=== PATIENT | female | born 1930 | race Caucasian/White ===

== ENCOUNTER 2016-11-07 07:52 | Inpatient (IN) | payer OTHER ==
[~2016-11-07] VITALS: Ht 149.9 cm; Wt 72.6 kg
--- NOTE | 2016-11-07 09:09 | DIAGNOSTIC IMAGING REPORT ---
PROCEDURE: XR ABDOMEN 1 VIEW INDICATION: CONSTIPATION TECHNIQUE: AP supine view. COMPARISON: None. FINDINGS: Several moderately dilated loops of small bowel centrally with decreased gas distally. No masses or unusual calcifications. Right upper quadrant surgical clips. 4 cm ovoid opacity projecting over the sacrum. Degenerative changes of the spine. IMPRESSION: 1. Moderately dilated loops of small bowel with paucity of gas distally suspicious for small bowel obstruction. Ileus is less likely. 2. Cholecystectomy
--- NOTE | 2016-11-07 10:09 | DIAGNOSTIC IMAGING REPORT ---
PROCEDURE: CT ABDOMEN/PELVIS W/O CONTRAST INDICATION: CONSTIPATION TECHNIQUE: Noncontrast axial images were obtained of the entire abdomen and pelvis with sagittal and coronal reformations. COMPARISON: KUB 11/07/[address] abdomen/pelvis 12/27/2012 FINDINGS: ABDOMEN: Lung bases are clear. Normal heart size. Moderate dilation of the jejunum and mid ileum with air-fluid levels and normal caliber distally. Transition point in the mid pelvis. Mild residual stool. Cholecystectomy. Liver, pancreas, spleen, adrenal glands and kidneys are unremarkable. Severe atherosclerosis but no aneurysm. Moderate hiatal hernia. 3.5 cm midline fat-containing ventral hernia in the epigastric region. PELVIS: Normal appendix. Distal sigmoid suture line. Atrophic uterus. Normal adnexa and bladder. No free fluid or inflammatory changes. Osteopenia. New severe L2, L3 and L5 compression fractures which appear chronic, with L5 vertebroplasty. L2 and L3 retropulsion with severe spinal stenosis at. Grade 1 L4-5 anterolisthesis. IMPRESSION: 1. Distal sigmoid suture line with moderate dilation of the small bowel and transition point in the pelvis. Findings are consistent with small bowel obstruction, likely due to adhesions 2. Cholecystectomy 3. Moderate hiatal hernia 4. 3.5 cm midline fat-containing ventral hernia 5. Osteopenia with severe L2, L3 and L5 compression fractures which appear chronic (L5 vertebroplasty) 6. Results discussed with Dr. Scruggs All CT scans at this facility use dose modulation, iterative reconstruction, and/or weight-based dosing when appropriate to reduce radiation dose to as low as reasonably achievable.
--- NOTE | 2016-11-07 10:36 | ED ORDER SUMMARY ---
..... Patient: JACQUELYN ANDRADE OrderSheet [facility] VisitID: [id number] [place], [place] [id number] 86y, F Registration Date/Time: 11/07/2016 ORDER SHEET Weight: 64.8 kg (stated) Allergies: Ibuprofen GENERAL ORDERS: Abdomen 1V Urgent (08:31 11/07/2016 Devorah Walton) (Ack 8:35 LTapper) (8:59 LTapper) CBC w Diff Urgent (08:32 11/07/2016 Devorah Walton) (Ack 8:35 LTapper) (8:36 SReitz R.N.) CMP Urgent (08:11/07/2016 Devorah Walton) (Ack 8:35 LTapper) (8:36 SReitz R.N.) UA-Culture if indicated Urgent (08:32 11/07/2016 Devorah Walton) (Ack 8:35 LTapper) (10:48 RKaruga) Amylase Urgent (08:32 11/07/2016 Devorah Walton) (Ack 8:35 LTapper) (8:36 SReitz R.N.) Lipase Urgent (08:32 11/07/2016 Devorah Walton) (Ack 8:35 LTapper) (8:36 SReitz R.N.) Magnesium Urgent (08:32 11/07/2016 Devorah Walton) (Ack 8:35 LTapper) (8:36 SReitz R.N.) CT Abd/Pel wo Cont Urgent (08:57 11/07/2016 Devorah Walton) (Ack 8:58 LTapper) (9:33 LTapper) NG Tube (10:39 11/07/2016 Maxine TELLO) (Ack 10:49 SReitz R.N.) (11:21 SReitz R.N.) EKG - ER Stat (11:30 11/07/2016 SReitz R.N. verbal order read back to Devorah Walton) (11:57 LTapper) (11:58 RKarshaneka) Troponin-I Urgent (11:47 11/07/2016 Maxine TELLO) (Ack 12:00 LTapper) (12:50 Eliseo Castaneda.N.) CPK Urgent (11:47 11/07/2016 Maxine TELLO) (Ack 12:00 LTapper) (12:51 Eliseo Kothari) MEDICATION ORDERS: IV FLUIDS: IV NS : initial bolus none -, then 1000 mL/hr for X1 (NOW) (08:31 11/07/2016 Devorah Walton) (8:36 Eliseo Castaneda.N.) Zofran IV 4 mg (NOW) (10:43 11/07/2016 Maxine TELLO) (Ack 10:46 Eliseo R.N.) (10:48 Eliseo R.N.) ORDER SHEET NOTES: [Electronically signed by Maddie Rayo R.N. (12:52 11/07/2016)] [Electronically signed by Kg Scruggs MD (15:22 11/08/2016)] [Electronically locked/signed by Maddie Rayo R.N. (12:52 11/07/2016)]
--- NOTE | 2016-11-07 10:36 | ED CLINICAL REPORT ---
Clinical Report - Physicians/Mid Levels [facility] [address] [place] [address] 11/07/2016 7:52 Patient: JACQUELYN ANDRADE Time Seen; initial patient contact. Arrived- By private vehicle. Historian- patient. CPT: ER phys charges level 5 (#[id number]). HISTORY OF PRESENT ILLNESS Chief Complaint: ABDOMINAL PAIN. At its maximum, severity described as moderate. When seen in the E.D., severity described as mild. Modifying factors. Not worsened by anything. Not relieved by anything. This started about 3 days ago; Has not taken po well for the past week. and is still present. It was gradual in onset. It is described as cramping. No radiation. It is described as generalized in location. The patient has had nausea, loss of appetite and vomiting. No diarrhea. No recent travel. Similar symptoms previously: None. Recent medical care: Not recently seen/assessed. REVIEW OF SYSTEMS The patient has had constipation and weakness. No black stools, hematemesis, difficulty with urination, pain with urination or fever. No sore throat or throat, blurred vision, chest pain or difficulty breathing. No cough, joint pain, skin rash, chills or back pain. No diabetic symptoms or easy bruising. Last bowel movement: 3 days ago. All systems otherwise negative, except as recorded above. PAST HISTORY Coronary Artery Disease. Hypertension. Epistaxis. Cancer. Cholelithiasis. Gallstone(s). Gastroesophageal Reflux Disease. Hypercholesterolemia. Osteoporosis. ADDITIONAL SURGERIES: Cataract Surgery. Colon cancer surgery. Hammer toe. Knee Surgery. Shoulder Surgery. Back Surgery. SOCIAL HISTORY Smoker - current status unknown. No alcohol use or drug use. ADDITIONAL NOTES The nursing notes have been reviewed with agreement regarding the chief complaint, PMH and patient medications and allergies. PHYSICAL EXAM Vital Signs: 11/07/2016 08:02 BP: 112/72. HR: 112. RR: 16. O2 saturation: 96%. Temp: 98.6 F. Have been reviewed. Blood pressure normal. Tachycardic. Respiratory rate normal. Temperature normal. Oxygen saturation normal. Appearance: Alert. Oriented X3. No acute distress. Eyes: Eyes normal inspection. ENT: Dry mucous membranes present. Neck: Neck supple. CVS: Tachycardia. Heart sounds normal. Rhythm normal. Respiratory: No respiratory distress. Breath sounds normal. Abdomen: Soft. Mild tenderness diffusely. No guarding, rebound tenderness or Young's sign present. Abnormal bowel sounds: diminished and high pitched. No organomegaly. No mass. Skin: Poor skin turgor. Skin warm and dry. Normal skin color. Extremities: No lower extremity edema. Neuro: Oriented X 3. LABS, X-RAYS, AND EKG EKG: Rate: 104. Atrial fibrillation. Normal QRS complex. Non-specific ST segment / T wave abnormalities. Prior EKG unavailable. The study has been interpreted contemporaneously. The study has been independently viewed by me. The EKG appears to be a good tracing. KUB: Diffuse abnormal gas pattern with small bowel dilatation and air fluid levels. Findings consistent with an obstruction. Views: AP. Technique: good. The X-rays were independently viewed by me and interpreted contemporaneously by me. Prior films were not available for comparison. Interpretation time: 09:34. Abdominal CT: Multiple loops of small bowel, mid-abdomen transition point.. Laboratory Tests: CBC w Diff: (AFSHIN: 11/07/2016 08:10) ( MsgRcvd 11/07/2016 08:40) Final results Test Result Flag Units (Reference) WHITE BLOOD COUNT 13.4 H K/uL (4.5-11.5) RED BLOOD COUNT 4.57 M/uL (4.00-5.20) HEMOGLOBIN 14.6 gm/dL (12.0-16.0) HEMATOCRIT 42.8 % (36.0-46.0) MEAN CELL VOLUME 94 fL (80-100) MEAN CORPUSCULAR HGB 32 pg (26-34) MEAN CORPUSCULAR HGB CONC 34 g/dL (31-37) RED CELL DISTRIBUTION WIDTH 12.3 % (11.6-14.8) PLATELET COUNT 364 K/uL (150-400) NEUTROPHIL % 82.5 H % (50-75) LYMPH % 8.2 L % (25-40) MONO % 8.9 % (3-14) EOSINOPHIL % 0 % (0-4) BASOPHIL % 0.4 % (0-2) CMP: (AFSHIN: 11/07/2016 08:10) ( MsgRcvd 11/07/2016 08:52) Final results Test Result Flag Units (Reference) GLUCOSE 135 H mg/dL (70-110) BUN 61 H mg/dL (7-18) CREATININE 2.0 H mg/dL (0.6-1.3) Estimated GFR 25.11 mL/min Estimated GFR- 30.43 mL/min Note: Persistent reduction over 3 months in eGFR<60 mL/min/1.73 m2 defines CKD. Patients with eGFR values>=60 mL/min/1.73 m2 may also have CKD if evidence ofpersistent proteinuria. Additional information may be foundat www.kidney.org. SODIUM 132 L mmol/L (136-145) POTASSIUM 3.9 mmol/L (3.5-5.1) CHLORIDE 93 L mmol/L (98-107) CARBON DIOXIDE 24 mmol/L (21-32) CALCIUM 9.1 mg/dL (8.5-10.1) TOTAL PROTEIN 8.6 H g/dL (6.4-8.2) ALBUMIN 4.3 g/dL (3.3-5.0) BILIRUBIN, TOTAL 1.3 H mg/dL (0.0-1.0) ALKALINE PHOSPHATASE 80 U/L (46-116) AST (SGOT) 42 H U/L (15-37) ALT (SGPT) 38 U/L (12-78) MAGNESIUM 2.2 mg/dL (1.8-2.4) LIPASE 145 U/L (73-393) AMYLASE 60 U/L (25-115) . PROGRESS AND PROCEDURES Course of Care: IV NS 1 L IV 09:35 11/07/16. Awaiting CT of Abd/Pel. X ray and history c/w SBO. Case signed out to Dr. Scruggs. 11:46 11/07/16. RN note irregular rhythm on monitor : EKG done and shows a-fib. Pt has no hx of a-fib. Discussed case with on-call health care provider, (Rj.). Reviewed test results. Agreed upon treatment plan and decision to admit. Patient/family counseled. Old medical records ordered. Disposition orders written. Disposition: Admitted to Acute Care. CLINICAL IMPRESSION Partial small bowel obstruction associated with intestinal bands / adhesions. (Electronically signed by Kg Scruggs MD 11/08/2016 15:22)
--- NOTE | 2016-11-07 10:36 | ED NURSING NOTES ---
Clinical Report - Nurses [facility] [address] [place] [address] 11/07/2016 7:52 [id number] Triage time 08:02. Acuity: LEVEL 3. Chief Complaint: ABDOMINAL PAIN and VOMITING. Alert. No acute distress. SEPSIS SCREEN: Sepsis Screen. Negative (no infection suspected/documented). KIRSTY COMA SCORE: Kirsty Coma Scale: 15- eyes open spontaneously (4); best verbal response- oriented x 4 (5); best motor response- obeys commands (6). --08:09 Maddie Rayo R.N. 08:02 11/07/16. BP: 112/72. HR: 112. RR: 16. O2 saturation: 96%. Temp: 98.6 F. Pain level now 11/06. --08:09 Maddie Rayo R.N. Weight: 64.8 kg stated. Height/Length: 59 inches Per Patient. BMI: 28.9. --08:03 Maddie Rayo R.N. Medications Centrum Silver Oral. Lovastatin Oral (pt unsure of dose ). Omeprazole Oral 20 mg, 2x a day. Vitamin D Oral. Vitamin E Complex Oral. --08:06 Maddie Rayo R.N. ASA Oral daily. --08:06 Maddie Rayo R.N. TraZODone HCl Oral 100 mg, at bedtime. --08:07 Maddie Rayo R.N. family is bring updated med list*. --08:07 Maddie Rayo R.N. Nitroglycerin Sublingual, as needed (angina). --08:08 Maddie Rayo R.N. Allergies Ibuprofen. --08:06 Maddie Rayo R.N. History Arrived by private vehicle. Historian: patient. Accompanied by family. Primary physician (Dr. Marie). Onset. (3 days ago). ( Pt. does not recall last last BM: has been vomiting fecal smelling emesis.). Treatment EMPLOYEE RELATIONS ASSISTANT: None. PAST MEDICAL HX: Immunizations: up-to-date. SOCIAL HX: Smoker- current status unknown. Occasional alcohol use. No drug use. No recent travel. No known contact with a sick individual. ABUSE ASSESSMENT: Abuse assessment: The patient was asked "Do you feel safe in your home?" and "Has anyone hurt you or threatened to hurt you?". No report of abuse. SELF HARM ASSESSMENT: A self harm assessment was performed. NUTRITIONAL RISK ASSESSMENT: The nutritional risk assessment revealed no deficiencies. FUNCTIONAL ASSESSMENT: Functional assessment: no impairments noted. LEARNING NEEDS ASSESSMENT: The learning needs assessment revealed no barriers. --08:09 Maddie Rayo R.N. PROBLEMS: Coronary Artery Disease. Hypertension. Epistaxis. Cancer. Cholelithiasis. Gallstone(s). Gastroesophageal Reflux Disease. Hypercholesterolemia. --08:08 Maddie Rayo R.N. Osteoporosis. --08:11 Maddie Rayo R.N. ADDITIONAL SURGERIES: Cataract Surgery. Colon cancer surgery. Hammer toe. Knee Surgery. Shoulder Surgery. --08:08 Maddie Rayo R.N. Back Surgery. --08:11 Maddie Rayo R.N. Interventions ID band on patient. Transported via wheelchair. --08:09 Maddie Rayo R.N. PHYSICAL ASSESSMENT To room via wheelchair. GENERAL / NEURO / PSYCH: Alert. Appears in no acute distress. HEENT: Mucous membranes are pink. RESPIRATORY: Respirations not labored. CVS: Capillary refill less than 2 seconds. GI / : Abdomen soft and nontender. SKIN: Skin is warm and dry. --08:10 Maddie Rayo R.N. NURSING PROGRESS NOTES Patient gowned. Head of bed elevated. Two patient identifiers checked. Call light placed in reach. Side rails up x 2. Bed placed in lowest position. Brakes of bed on. Patient ready for evaluation- chart flagged. --08:10 Maddie Rayo R.N. 08:10 11/07/2016 Site #1 started via IV in the left antecubital space with an 20g angiocath, with aseptic technique and good blood return; one attempt. Blood drawn: rainbow set. Labeled in the presence of the patient and sent to the lab. Saline lock flushed with 10 mL saline (accessed by CONRAD Rodriguez). --08:10 Maddie Rayo R.N. night monitor, pulse oximeter and NIBP monitor placed on patient; surveillance system monitor- Lead II; monitor alarms on. --08:10 Maddie Rayo R.N. 08:36 11/07/2016 Started bag #1 1000 mL IV Fluids IV NS (Saline); at 1000 mL/hr over 1 hour(s) via site #1 via IV pump. Allergies verified and confirmed 5 rights. IV patency established. IV site checked: no pain, redness, or swelling. IV flushed thoroughly pre- and post-medication administration. --08:36 Maddie Rayo R.N. 09:20 11/07/16. BP: 129/60. HR: 94. RR: 23. O2 saturation: 96%. --09:21 Maddie Rayo R.N. Patient transported to [place] by stretcher with tech. --09:21 Maddie Rayo R.N. 10:48 11/07/2016 Zofran (Ondansetron HCl) IVP 4 mg given over 1 minute(s) via site #1. Allergies verified and confirmed 5 rights. IV patency established. IV site checked: no pain, redness, or swelling. IV flushed thoroughly pre- and post-medication administration. --10:48 Maddie Rayo R.N. 10:40. Patient ID band checked for patient name and birthdate: patient confirmed urine collected with return of ban-colored cloudy urine; odor is normal; sample sent to lab for urinalysis. Specimen labeled in the presence of the patient. --10:49 Adamaris Vargas 11:15. 16 fr NG tube inserted in right nostril with no difficulty. Placement confirmed by return of gastric contents. Return: brown fluid, fecal odor. Tube secured. Attached to low suction. Patient tolerated procedure well. --11:25 Maddie Rayo R.N. 11:26 11/07/16. BP: 118/74. HR: 99. RR: 24. O2 saturation: 97%. --11:27 Maddie Rayo R.N. EKG time: (11:40). EKG was performed by a tech and shown to the ED physician. --12:02 Adamaris Vargas ( attempt to call report: STEPHEN RN to call back.). --12:06 Maddie Rayo R.N. 09:45 11/07/2016 IV Fluids IV NS Discontinued: bag #1 infused. Total amount infused: 1000 mL. IV patency established. IV site checked: no pain, redness, or swelling. IV flushed thoroughly. --12:52 Maddie Rayo R.N. 11:30 11/07/2016 Zofran IVP Response: no adverse reaction pain is improving. Symptoms have improved. --12:51 Maddie Rayo R.N. Intake & Output 10:45. Emesis output: 50 mL; return noted as brown. --11:23 Adamaris Vargas IV fluids: 1000 mL. Emesis output: 400 mL; return noted as brown. --12:43 Maddie Rayo R.N. DISPOSITION / DISCHARGE 12:43 11/07/16. BP: 125/52. HR: 86 (irregularly-irregular). RR: 28. O2 saturation: 97%. Temp: 99.5 F. Pain level now: 10/09. --12:44 Maddie Rayo R.N. 12:44 11/07/2016 Site #[address] upon admission; patent, no pain and no signs of infiltration. Flushed with 10 mL saline; flushes easily. --12:44 Maddie Rayo R.N. Admitted to Acute Care. Report was given to a nurse via a phone call. Report included patient's care, treatment, medications, reviewed medication reconcilliation, and condition (including any recent changes or anticipated changes). All questions were answered. Patient's personal items; items were placed in belongings bag, given to the patient and transported with the patient. --12:45 Maddie Rayo R.N. Departure time: 12:50. --12:50 Maddie Rayo R.N. Locked/Released at 11/07/2016 12:52 by Maddie Rayo R.N.
--- NOTE | 2016-11-07 10:36 | ED ORDER SUMMARY ---
..... Patient: JACQUELYN ANDRADE OrderSheet [facility] VisitID: [id number] [place], [place] [id number] 86y, F Registration Date/Time: 11/07/2016 ORDER SHEET Weight: 64.8 kg (stated) Allergies: Ibuprofen GENERAL ORDERS: Abdomen 1V Urgent (08:31 11/07/2016 Devorah Walton) (Ack 8:35 LTapper) (8:59 LTapper) CBC w Diff Urgent (08:32 11/07/2016 Devorah Walton) (Ack 8:35 LTapper) (8:36 SReitz R.N.) CMP Urgent (08:11/07/2016 Devorah Walton) (Ack 8:35 LTapper) (8:36 SReitz R.N.) UA-Culture if indicated Urgent (08:32 11/07/2016 Devorah Walton) (Ack 8:35 LTapper) (10:48 RKaruga) Amylase Urgent (08:32 11/07/2016 Devorah Walton) (Ack 8:35 LTapper) (8:36 SReitz R.N.) Lipase Urgent (08:32 11/07/2016 Devorah Walton) (Ack 8:35 LTapper) (8:36 SReitz R.N.) Magnesium Urgent (08:32 11/07/2016 Devorah Walton) (Ack 8:35 LTapper) (8:36 SReitz R.N.) CT Abd/Pel wo Cont Urgent (08:57 11/07/2016 Devorah Walton) (Ack 8:58 LTapper) (9:33 LTapper) NG Tube (10:39 11/07/2016 Maxine TELLO) (Ack 10:49 SReitz R.N.) (11:21 SReitz R.N.) EKG - ER Stat (11:30 11/07/2016 SReitz R.N. verbal order read back to Devorah Walton) (11:57 LTapper) (11:58 RKarshaneka) Troponin-I Urgent (11:47 11/07/2016 Maxine TELLO) (Ack 12:00 LTapper) (12:50 Eliseo Castaneda.N.) CPK Urgent (11:47 11/07/2016 Maxine TELLO) (Ack 12:00 LTapper) (12:51 Eliseo Kothari) MEDICATION ORDERS: IV FLUIDS: IV NS : initial bolus none -, then 1000 mL/hr for X1 (NOW) (08:31 11/07/2016 Devorah Walton) (8:36 Eliseo Castaneda.N.) Zofran IV 4 mg (NOW) (10:43 11/07/2016 Maxine TELLO) (Ack 10:46 Eliseo R.N.) (10:48 Eliseo R.N.) ORDER SHEET NOTES: [Electronically signed by Maddie Rayo R.N. (12:52 11/07/2016)] [Electronically signed by Kg Scruggs MD (15:22 11/08/2016)] [Electronically locked/signed by Maddie Rayo R.N. (12:52 11/07/2016)]
--- NOTE | 2016-11-07 10:36 | ED NURSING NOTES ---
Clinical Report - Nurses [facility] [address] [place] [address] 11/07/2016 7:52 [facility]: [id number] TRIAGE Triage time 08:02. Acuity: LEVEL 3. Chief Complaint: ABDOMINAL PAIN and VOMITING. Alert. No acute distress. SEPSIS SCREEN: Sepsis Screen. Negative (no infection suspected/documented). KIRSTY COMA SCORE: Kirsty Coma Scale: 15- eyes open spontaneously (4); best verbal response- oriented x 4 (5); best motor response- obeys commands (6). --08:09 Maddie Rayo R.N. 08:02 11/07/16. BP: 112/72. HR: 112. RR: 16. O2 saturation: 96%. Temp: 98.6 F. Pain level now 11/06. --08:09 Maddie Rayo R.N. Weight: 64.8 kg stated. Height/Length: 59 inches Per Patient. BMI: 28.9. --08:03 Maddie Rayo R.N. Medications Centrum Silver Oral. Lovastatin Oral (pt unsure of dose ). Omeprazole Oral 20 mg, 2x a day. Vitamin D Oral. Vitamin E Complex Oral. --08:06 Maddie Rayo R.N. ASA Oral daily. --08:06 Maddie Rayo R.N. TraZODone HCl Oral 100 mg, at bedtime. --08:07 Maddie Rayo R.N. family is bring updated med list*. --08:07 Maddie Rayo R.N. Nitroglycerin Sublingual, as needed (angina). --08:08 Maddie Rayo R.N. Allergies Ibuprofen. --08:06 Maddie Rayo R.N. History Arrived by private vehicle. Historian: patient. Accompanied by family. Primary physician (Dr. Marie). Onset. (3 days ago). ( Pt. does not recall last last BM: has been vomiting fecal smelling emesis.). Treatment CARD PLAYER: None. PAST MEDICAL HX: Immunizations: up-to-date. SOCIAL HX: Smoker- current status unknown. Occasional alcohol use. No drug use. No recent travel. No known contact with a sick individual. ABUSE ASSESSMENT: Abuse assessment: The patient was asked "Do you feel safe in your home?" and "Has anyone hurt you or threatened to hurt you?". No report of abuse. SELF HARM ASSESSMENT: A self harm assessment was performed. NUTRITIONAL RISK ASSESSMENT: The nutritional risk assessment revealed no deficiencies. FUNCTIONAL ASSESSMENT: Functional assessment: no impairments noted. LEARNING NEEDS ASSESSMENT: The learning needs assessment revealed no barriers. --08:09 Maddie Rayo R.N. PROBLEMS: Coronary Artery Disease. Hypertension. Epistaxis. Cancer. Cholelithiasis. Gallstone(s). Gastroesophageal Reflux Disease. Hypercholesterolemia. --08:08 Maddie Rayo R.N. Osteoporosis. --08:11 Maddie Rayo R.N. ADDITIONAL SURGERIES: Cataract Surgery. Colon cancer surgery. Hammer toe. Knee Surgery. Shoulder Surgery. --08:08 Maddie Rayo R.N. Back Surgery. --08:11 Maddie Rayo R.N. Interventions ID band on patient. Transported via wheelchair. --08:09 Maddie Rayo R.N. PHYSICAL ASSESSMENT To room via wheelchair. GENERAL / NEURO / PSYCH: Alert. Appears in no acute distress. HEENT: Mucous membranes are pink. RESPIRATORY: Respirations not labored. CVS: Capillary refill less than 2 seconds. GI / : Abdomen soft and nontender. SKIN: Skin is warm and dry. --08:10 Maddie Rayo R.N. NURSING PROGRESS NOTES Patient gowned. Head of bed elevated. Two patient identifiers checked. Call light placed in reach. Side rails up x 2. Bed placed in lowest position. Brakes of bed on. Patient ready for evaluation- chart flagged. --08:10 Maddie Rayo R.N. 08:10 11/07/2016 Site #1 started via IV in the left antecubital space with an 20g angiocath, with aseptic technique and good blood return; one attempt. Blood drawn: rainbow set. Labeled in the presence of the patient and sent to the lab. Saline lock flushed with 10 mL saline (accessed by CONRAD Rodriguez). --08:10 Maddie Rayo R.N. vehicle monitor technician, pulse oximeter and NIBP monitor placed on patient; cardiac cath technologist- Lead II; monitor alarms on. --08:10 Maddie Rayo R.N. 08:36 11/07/2016 Started bag #1 1000 mL IV Fluids IV NS (Saline); at 1000 mL/hr over 1 hour(s) via site #1 via IV pump. Allergies verified and confirmed 5 rights. IV patency established. IV site checked: no pain, redness, or swelling. IV flushed thoroughly pre- and post-medication administration. --08:36 Maddie Rayo R.N. 09:20 11/07/16. BP: 129/60. HR: 94. RR: 23. O2 saturation: 96%. --09:21 Maddie Rayo R.N. Patient transported to [place] by stretcher with tech. --09:21 Maddie Rayo R.N. 10:48 11/07/2016 Zofran (Ondansetron HCl) IVP 4 mg given over 1 minute(s) via site #1. Allergies verified and confirmed 5 rights. IV patency established. IV site checked: no pain, redness, or swelling. IV flushed thoroughly pre- and post-medication administration. --10:48 Maddie Rayo R.N. 10:40. Patient ID band checked for patient name and birthdate: patient confirmed urine collected with return of ban-colored cloudy urine; odor is normal; sample sent to lab for urinalysis. Specimen labeled in the presence of the patient. --10:49 Adamaris Vargas 11:15. 16 fr NG tube inserted in right nostril with no difficulty. Placement confirmed by return of gastric contents. Return: brown fluid, fecal odor. Tube secured. Attached to low suction. Patient tolerated procedure well. --11:25 Maddie Rayo R.N. 11:26 11/07/16. BP: 118/74. HR: 99. RR: 24. O2 saturation: 97%. --11:27 Maddie Rayo R.N. EKG time: (11:40). EKG was performed by a tech and shown to the ED physician. --12:02 Adamaris Vargas ( attempt to call report: STEPHEN RN to call back.). --12:06 Maddie Rayo R.N. 09:45 11/07/2016 IV Fluids IV NS Discontinued: bag #1 infused. Total amount infused: 1000 mL. IV patency established. IV site checked: no pain, redness, or swelling. IV flushed thoroughly. --12:52 Maddie Rayo R.N. 11:30 11/07/2016 Zofran IVP Response: no adverse reaction pain is improving. Symptoms have improved. --12:51 Maddie Rayo R.N. Intake & Output 10:45. Emesis output: 50 mL; return noted as brown. --11:23 Adamaris Vargas IV fluids: 1000 mL. Emesis output: 400 mL; return noted as brown. --12:43 Maddie Rayo R.N. DISPOSITION / DISCHARGE 12:43 11/07/16. BP: 125/52. HR: 86 (irregularly-irregular). RR: 28. O2 saturation: 97%. Temp: 99.5 F. Pain level now: 10/09. --12:44 Maddie Rayo R.N. 12:44 11/07/2016 Site #[address] upon admission; patent, no pain and no signs of infiltration. Flushed with 10 mL saline; flushes easily. --12:44 Maddie Rayo R.N. Admitted to Acute Care. Report was given to a nurse via a phone call. Report included patient's care, treatment, medications, reviewed medication reconcilliation, and condition (including any recent changes or anticipated changes). All questions were answered. Patient's personal items; items were placed in belongings bag, given to the patient and transported with the patient. --12:45 Maddie Rayo R.N. Departure time: 12:50. --12:50 Maddie Rayo R.N. Locked/Released at 11/07/2016 12:52 by Maddie Rayo R.N.
[2016-11-07 13:20] VITALS: BP 121/64
--- NOTE | 2016-11-07 14:24 | CONSULTATION REPORT ---
DATE OF CONSULTATION: 11/07/2016 REFERRING PHYSICIAN: Shadia Gaona MD CHIEF COMPLAINT: Vomiting. HISTORY OF PRESENT ILLNESS: The patient is an 86-year-old woman who presented to the hospital with a 4-day history of vomiting. She did not have abdominal pain until this morning in the epigastrium and this has since settled down with placement of a nasogastric tube. At the present time, she does not have any pain and feels quite comfortable. She denied any hematemesis. She is not currently passing gas. In the emergency room notes, she has had similar milder symptoms several times in the past. I am familiar with this patient from previous surgeries including colon cancer surgery and cholecystectomy. MEDICATIONS: 1. Lovastatin, dose unknown. 2. Omeprazole 20 mg b.i.d. 3. Aspirin once a day. 4. Trazodone 100 mg at bedtime. 5. Nitroglycerin sublingual as needed. 6. Multiple nutritional supplements. ALLERGIES: Ibuprofen and nsaids MEDICAL/SURGICAL HISTORY: Medical history includes GERD, and elevated cholesterol. Past surgery: Cataract surgery, hammertoe correction, knee surgery, shoulder surgery, laparoscopic low anterior resection in 2003. She had a colonoscopy in 2008, laparoscopic cholecystectomy and common bile duct exploration in 2012. SOCIAL HISTORY: The patient is . She has 3 sons and 2 daughters. She does not take alcohol. She does not smoke cigarettes. She is independent. FAMILY HISTORY: Father of heart disease at age 70. Mother had Alzheimer's complications. One brother and 1 sister had heart disease. She has a daughter with ulcerative colitis and fibromyalgia. REVIEW OF SYSTEMS: A multipoint review of systems was obtained. The patient is G5, P5, AB 0. Menarche at age 14. At least all systems were covered and she reports no other additional symptoms other than the vomiting problem that she has had and the transient epigastric pain. She reports her last bowel movement was about 3 days ago. She has not had fever and chills, but she does report a previous history of constipation. She has no urinary problems, pulmonary, cardiac problems. There was a mention of previous coronary artery disease and documentation in the past of atrial fibrillation, though the patient is not reported to be in atrial fibrillation at this time and is not anticoagulated. PHYSICAL EXAMINATION: VITAL SIGNS: This morning, blood pressure 112/72, heart rate 112, respirations 16, O2 saturation 96%, and temperature 98.6. GENERAL: The patient appears to be comfortable. She has a nasogastric tube in place with nonbilious output. HEENT: Her ears and nose demonstrate no gross external lesions. Eyes are equal. She is anicteric. NECK: Without palpable masses or thyromegaly. I did not hear bruits. CHEST: Clear to auscultation. HEART: Regular, I did not hear a murmur. ABDOMEN: Nontender to palpation. Bowel sounds are hypoactive. There is no active clear distention or increased tympany. EXTREMITIES: Symmetric. She appeared to move without much restriction. LAB/IMAGING: Initial white count was 13.4, hemoglobin and hematocrit 14.6 and 42.8. Chemistry showed sodium 132, potassium 3.9, BUN and creatinine of 61 and 2.0, bilirubin of 1.3. Urinalysis was 1-3 white cells, no red cells. CT scan was reviewed. This demonstrates evidence of a small-bowel obstruction with dilated small bowel with a likely transition point in the distal jejunum or ileum. Additional findings were a staple line in the lower colon, which appears to be widely patent. There is a fair amount of stool in the rectum and colon. She has some chronic lumbar spine problems and some calcified vessels. IMPRESSION: 1. Small-bowel obstruction without signs of bowel compromise. PLAN: I recommended the patient be treated with nasogastric decompression. If she continues to do well, then a Gastrografin study may be in line for her in the next few days. I will sign the patient out Dr. Benavidez starting tomorrow.
[2016-11-07 15:17] VITALS: BP 147/86
--- NOTE | 2016-11-07 15:19 | NUR ---
DISCUSSED WITH PT AND FAMILY THE CONTENTS OF THE VISITOR HANDBOOK, INCLUDING HOSPITALIST AVAILIBILTIY, VISTING HOURS, NOISE REDUCTION PROCESSES AND QUIET KITS, PT COMFORT AND PAIN CONTROL, INCLUDING PAIN CONTROL ADJUNCTIVES, THE FUNCTION OF WHITEBOARDS AND IMPORTANCE OF KEEPING THEM UPDATED WELL BED SIDE REPORT AND ENCOURAGED PT AND FAMILY TO PARTICIPATE. ALL QUESTIONS ANSWERED, PT AND FAMILY DEMONSTRATED UNDERSTANDING.
--- NOTE | 2016-11-07 15:44 | NUR ---
PATIENT ADMITTED TO FLOOR AT 1400. NG TUBE CAME OUT OF NOSE AFTER ADMITTED. NG REPLACED AND TOOK SEVERAL TRIED TO INSERT DUE TO PATIENT NOT ABLE TO TOLERATE INSERTION. PATIENT GAGGING AND HAVING TROUBLES TOLERATING. NG CURRENTLY IN PLACE TO LIS. BROWN LIQUID BEING SUCTIONED FROM NG. BT'S + X 4. ABDOMEN SOFTLY DISTENDED. PATIENT WEARING BRIEFS AND STATES SHE HAS OCCASSIONAL STRESS INCONTINENCE. STATES SHE IS CONTINENT OF BM. STATES SHE USES A FWW AT BASELINE. LIVES IN HER OWN HOME THAT IS VERY CLOSE TO HER FAMILY AND HER FAMILY PROVIDES ALL HER MEALS. FAMILY CURRENTLY AT BEDSIDE AND SON BROUGHT IN MED LIST. SEE ADMISSION PAPERWORK FOR DETAILS.
[2016-11-07] MEDS ORDERED: EVISTA60 MG (16:38)
[2016-11-07] MEDS ORDERED: METOPROLOL ER PO (16:38)
[2016-11-07] MEDS ORDERED: COZAAR25 MG PO (16:38)
[2016-11-07] MEDS ORDERED: OMEPRAZOLE PO (16:39)
[2016-11-07] MEDS ORDERED: ALLOPURINOL100 M1 (16:39)
[2016-11-07] MEDS ORDERED: MELOXICAM15 MG PO (16:40)
[2016-11-07] MEDS ORDERED: TUMS500 MG (16:40)
[2016-11-07] MEDS ORDERED: TRAZODONE HCL100 MG PO (16:40)
[2016-11-07] MEDS ORDERED: MELOXICAM15 MG (16:40)
[2016-11-07] MEDS ORDERED: VICODIN EQUIVAL1 TAB PO (16:41)
--- NOTE | 2016-11-07 17:47 | NUR ---
END SHIFT REPORT: ADMINISTERED FLEET'S ENEMA AT BEDSIDE. PT TOLERATED WELL, HELD IN FOR A FEW MINUTES. SOME STOOL OUTPUT. ASSISTED PT BACK TO BED, NG TUBE TO LIWS, ABOUT 400MLS OF OUTPUT. IVF INFUSING, PT REMAINS NPO, DR IZAGUIRRE TO SEE PT AT BEDSIDE. CALL PLACED TO SON TO DETERMINE ACCURATE LIST OF HOME MEDS. PT NOW RESTING IN BED, STABLE, RESTING COMFORTABLY, WCTM.
[2016-11-07 18:56] VITALS: BP 143/69
--- NOTE | 2016-11-07 20:22 | NUR ---
Pt. is resting in bed at this time. Alert, oriented and cooperative with all care. Pt. understands plan of care, is NPO for bowel rest, has NG at [facility] which is suctioning brown drainage. Abdomen is softly distended, pt. states she feels much better after having BM after enema tonight. Bowel tones present but hypoactive. Telemtry shows a-fib with HR in 90's. Benadryl given for sleep at pt.'s request. Call light within reach. Pt. encouraged to turn often in bed, pt. agrees and understands. wctm.
[2016-11-07 23:44] VITALS: BP 138/55
--- NOTE | 2016-11-08 00:13 | HISTORY AND PHYSICAL ---
ADMITTED: 11/07/2016 CHIEF COMPLAINT: 1. Nausea and vomiting 2. No BM x4 days HISTORY OF PRESENT ILLNESS: This is an 86-year-old female with a history of colectomy secondary to stage I colon cancer presenting to the emergency department with complaints of vomiting x4 days multiple times a day, and with her last bowel movement being greater than 4 days ago. She states that she is vomiting brown liquid from her stomach. She denies any abdominal pain. No hematochezia, melena, or hemoptysis. MEDICAL/SURGICAL HISTORY: Past medical history: 1. Colon cancer, not treated with chemotherapy. 2. Hypertension. 3. Dyslipidemia. 4. Osteoporosis. 5. Mitral regurgitation. 6. GERD. 7. Insomnia. 8. Moderate hiatal hernia. 9. The patient had a cardiac echocardiogram in 07/2014 that showed ejection fraction of 60%. Past surgical history: 1. Partial colectomy. 2. Cholecystectomy. 3. Bilateral arthroplasties twice. 4. Bilateral cataract surgery. MEDICATIONS: According to the patient's list, she is on: 1. Metoprolol ER 50 mg p.o. daily. 1. Raloxifene 60 mg p.o. daily. 2. Losartan 25 mg p.o. daily. 3. Allopurinol 100 mg p.o. daily. 4. Omeprazole 20 mg p.o. b.i.d. 5. Trazodone 100 mg p.o. at bedtime. 6. Meloxicam 15 mg p.o. daily. 7. Tums. 8. Vicodin 5/325 mg 1 tablet p.o. at bedtime. 9. However, according to the clinic, in addition to those medications, the patient is also taking lovastatin 20 mg p.o. daily. 10. Chlorthalidone 12.5 mg p.o. daily. 11. Spironolactone 25 mg p.o. daily. 12. Singulair 10 mg p.o. daily. 13. Gabapentin 100 mg p.o. t.i.d. p.r.n. nerve pain. 14. Albuterol inhaler 2 puffs inhaled q.4 hours p.r.n. wheezing. 15. QVAR 80 mcg 1 spray each nostril daily. 16. Tizanidine 2 mg p.o. t.i.d. p.r.n. muscle spasms. ALLERGIES: 1. NO KNOWN DRUG ALLERGIES. SOCIAL HISTORY: The patient lives alone; however, her son and daughter live right next door. She denies any pets. She quit smoking in 1999, but had smoked for 47 years at a rate of half a pack per day. She does drink 1-2 glasses of wine every night, but she denies any drug use. FAMILY HISTORY: Mother with leukemia. Sister with a heart attack at age 68. Brother with a heart attack. Father with a heart attack at 72. REVIEW OF SYSTEMS: A full 12-point review of systems was done. It was negative except as per HPI. PHYSICAL EXAMINATION: VITAL SIGNS: Blood pressure is 121/64, pulse is 87, respiratory rate is 18, O2 saturation 96% on room air, T-max is 36.8 degrees Celsius. GENERAL: This is a healthy-appearing female lying in bed in no apparent distress. HEENT: Head is atraumatic, normocephalic. Pupils are equal, round, and reactive to light with accommodation bilaterally. Extraocular muscles are intact bilaterally. Tympanic membranes are nonerythematous without exudates. Oropharynx is nonerythematous but mildly tacky or dry. NECK: Trachea is midline. There is no JVD. HEART: S1, S2, regular rate and rhythm. No S3, S4, gallops or rubs. There is a 2 /6 systolic murmur increased at the base. LUNGS: Clear to auscultation bilaterally. ABDOMEN: Soft, nontender, nondistended without hepatosplenomegaly or masses. Bowel sounds are active. EXTREMITIES: There is no peripheral edema. LAB/IMAGING: Sodium is 132, chloride 93, potassium 3.9, bicarbonate 24, BUN of 61, creatinine of 2, glucose of 135. Total bilirubin is 1.3, alkaline phosphatase of 80, AST of 42, ALT of 38, lipase of 145, amylase of 60. White blood cell count of 13.4, hemoglobin of 14.6, hematocrit of 42.8, platelets of 364. UA is negative. Abdominal x-ray shows dilated small bowel. CT scan of the abdomen shows dilated small bowel. EKG shows atrial fibrillation at 104 beats per minute with a QTc of 462 and Q waves in III and aVF. IMPRESSION: 1. This is an 86-year-old female with a history of colon cancer resulting in partial colectomy presenting to the emergency department with complaints of 4 days of nausea and vomiting and no bowel movement in more than 4 days, likely secondary to a small-bowel obstruction. PLAN: 1. Fluids, electrolytes, nutrition: The patient will be kept nothing by mouth and started on intravenous fluids. If she remains on intravenous fluids for longer than 48 hours, we will consider total parenteral nutrition. 2. Cardiac: Hypertension. Continue current medications. The patient will be put on intravenous metoprolol p.r.n.; however, since she is nothing by mouth, will not be able to continue her antihypertensive at this time. Will monitor closely. 3. Gastrointestinal: Gastroesophageal reflux disease. Continue current medications. 4. Arthritis: She will receive intravenous pain medications until taking orals and then we will transition her back to her oral medications. The patient has a small -bowel obstruction. Surgery has been consulted. We will monitor and treat conservatively at this time. 5. Neurologic: Insomnia. Will try Benadryl this evening in place of the trazodone. 6. Rheumatologic: The patient has a history of gout. She says she stopped the allopurinol in the past without any gout exacerbations. Will monitor closely and stop the allopurinol until she is taking orals. 7. Prophylaxis: The patient will be on pantoprazole for gastrointestinal ulcer prophylaxis and she will be started on sequential compression devices. We will hold chemical deep venous thrombosis prophylaxis at this time until surgery has been ruled out. 8. CODE STATUS: DO NOT RESUSCITATE.
--- NOTE | 2016-11-08 01:24 | NUR ---
Pt. is resting in bed at this time. Pt. had medium stool with small amount of urine in BSC, unmeasurable. Pt. had not small amount of urine output throughout the day, stated she only went a small amount earlier when having BM. Bladder scan showed 580 mls in bladder. Pt. stated she does not have the urge to void and states that it takes her a while before she has to void during the day. Will have her try and void in one hour. Pt. agreed to this. WCTM.
[2016-11-08 03:49] VITALS: BP 126/47
[2016-11-08 06:56] VITALS: BP 135/65
--- NOTE | 2016-11-08 07:21 | NUR ---
CARE TRANSFERRED, REPORT RECEIVED FROM KAELYN, COMPLETED BEDSIDE REPORT. PT IS NOW RESTING, NGT TO SUCTION, NO NEEDS, WCTM.
[2016-11-08 11:08] VITALS: BP 134/64
--- NOTE | 2016-11-08 11:10 | DIAGNOSTIC IMAGING REPORT ---
PROCEDURE: XR ABDOMEN 1 VIEW UPRIGHT INDICATION: Small bowel obstruction. TECHNIQUE: Single view upright abdomen. COMPARISON: 11/07/2016 FINDINGS: Interval placement of nasogastric tube with the side-hole just below the GE junction. Surgical clips in the gallbladder fossa. No free intraperitoneal air. Persistent moderately dilated small bowel loops centralized in the abdomen with air-fluid levels. Small amount of gas in probably the splenic flexure. Paucity of gas in the rectum. Small amount of stool seen in the right lower quadrant colon. No unusual mass effect. Demineralized osseous structures. Degenerative changes in the hips. L5 kyphoplasty. IMPRESSION: 1. Persistent findings of small bowel obstruction, similar compared to the previous study. 2. Interval placement of nasogastric tube. This could be advanced about 5 cm for optimal placement. 3. Findings called to the floor.
--- NOTE | 2016-11-08 11:55 | NUR ---
PER RADIOLOGIST, INSERT NG TUBE IN 5 MORE CM TO FURTHER RELIEVE OBSTRUCTION. ACCORDING TO IMAGING, OBSTRUCTION IS BARELY IMPROVED FROM YESTERDAY. NG TUBE IS NOW AT 64 CM TO LIWS. FAMILY AT BEDSIDE, PT DENIES NEEDS, WCTM.
--- NOTE | 2016-11-08 13:58 | NUR ---
CAREGIVER ROUNDING: DR CHAVEZ GAVE ORDERS TO ADVANCE NG TUBE 8 MORE INCHES. CLARIFIED WITH DOCTOR AND HE VERIFIED. DR IZAGUIRRE MADE AWARE. PT TO REMAIN NPO AND NGT TO LIWS, SHE HAS HAD MODERATE OUTPUT FROM NGT THIS MORNING. PT C/O ABD PAIN, ANXIOUS TO EAT AGAIN. SHE IS STABLE, PLEASANT, MANY VISITORS AT BEDSIDE.
[2016-11-08 14:47] VITALS: BP 139/64
--- NOTE | 2016-11-08 15:22 | ED DISCHARGE INSTRUCTIONS ---
Patient: JACQUELYN ANDRADE General Instructions [facility] VisitID: [id number] [address] [place] [address] 86y, F Registration Date/Time: 11/07/2016 Partial small bowel obstruction associated with intestinal bands / adhesions. (Electronically signed by Kg Scruggs MD 11/08/2016 15:22)
--- NOTE | 2016-11-08 15:22 | ED MED RECONCILIATION SUMMARY ---
Patient: JACQUELYN ANDRADE Medication Reconciliation Report [facility] VisitID: [id number] [place] [address] 86y, F Registration Date/Time: 11/07/2016 Weight: 64.8 kg Height/Length: 59 in. BMI: 28.9 ALLERGIES: Ibuprofen The patient's Home Medications are listed below: THE FOLLOWING MEDICATIONS NEED TO BE RECONCILED: family is bring updated med list* ASA Oral daily Centrum Silver Oral Lovastatin Oral, pt unsure of dose Nitroglycerin Sublingual, angina Omeprazole Oral 20 mg, 2x a day TraZODone HCl Oral 100 mg, at bedtime Vitamin D Oral Vitamin E Complex Oral The source(s) of the original Home Medication information: Not obtained. The following Medications were given to the patient in the Emergency Department: IV NS IV Fluids bolus 0, then 1000 mL/hr, administered: 11/07/2016 8:36:00 AM Zofran [IVP] IVP 4 mg, administered: 11/07/2016 10:48:00 AM The following Medications were prescribed to the patient: None.
--- NOTE | 2016-11-08 15:22 | ED MAR SUMMARY ---
..... Medication Administration Record [facility] [address] [place] [address] Patient: JACQUELYN ANDRADE Visit ID: [id number] 86y, F Weight: 64.8 kg Height/Length: 59 in BMI: 28.9 ALLERGIES: Ibuprofen Start 08:36 11/07/2016 Maddie Rayo R.N., Stop 09:45 11/07/2016 Maddie Rayo R.N. Medication Administered: IV NS (SALINE), Dose: IV Fluids over 1 hour(s), Rate: 1000 mL/hr, Dispensed: 1000 mL bag, Site: #1 left AC. Medication Ordered: IV NS : initial bolus none -, then 1000 mL/hr for X1 (NOW). Given 10:48 11/07/2016 Maddie Rayo R.N. Medication Administered: ZOFRAN [IVP] (ONDANSETRON HCL), Dose: 4 mg IVP over 1 minute(s), Site: #1 left AC. Medication Ordered: Zofran IV 4 mg (NOW).
--- NOTE | 2016-11-08 15:22 | ED MAR SUMMARY ---
..... Medication Administration Record [facility] [address] [place] [address] Patient: JACQUELYN ANDRADE Visit ID: [id number] 86y, F Weight: 64.8 kg Height/Length: 59 in BMI: 28.9 ALLERGIES: Ibuprofen Start 08:36 11/07/2016 Maddie Rayo R.N., Stop 09:45 11/07/2016 Maddie Rayo R.N. Medication Administered: IV NS (SALINE), Dose: IV Fluids over 1 hour(s), Rate: 1000 mL/hr, Dispensed: 1000 mL bag, Site: #1 left AC. Medication Ordered: IV NS : initial bolus none -, then 1000 mL/hr for X1 (NOW). Given 10:48 11/07/2016 Maddie Rayo R.N. Medication Administered: ZOFRAN [IVP] (ONDANSETRON HCL), Dose: 4 mg IVP over 1 minute(s), Site: #1 left AC. Medication Ordered: Zofran IV 4 mg (NOW).
--- NOTE | 2016-11-08 15:22 | ED DISCHARGE INSTRUCTIONS ---
Patient: JACQUELYN ANDRADE General Instructions [facility] VisitID: [id number] [address] [place] [address] 86y, F Registration Date/Time: 11/07/2016 Partial small bowel obstruction associated with intestinal bands / adhesions. (Electronically signed by Kg Scruggs MD 11/08/2016 15:22)
--- NOTE | 2016-11-08 15:22 | ED MED RECONCILIATION SUMMARY ---
Patient: JACQUELYN ANDRADE Medication Reconciliation Report [facility] VisitID: [id number] [place] [address] 86y, F Registration Date/Time: 11/07/2016 Weight: 64.8 kg Height/Length: 59 in. BMI: 28.9 ALLERGIES: Ibuprofen The patient's Home Medications are listed below: THE FOLLOWING MEDICATIONS NEED TO BE RECONCILED: family is bring updated med list* ASA Oral daily Centrum Silver Oral Lovastatin Oral, pt unsure of dose Nitroglycerin Sublingual, angina Omeprazole Oral 20 mg, 2x a day TraZODone HCl Oral 100 mg, at bedtime Vitamin D Oral Vitamin E Complex Oral The source(s) of the original Home Medication information: Not obtained. The following Medications were given to the patient in the Emergency Department: IV NS IV Fluids bolus 0, then 1000 mL/hr, administered: 11/07/2016 8:36:00 AM Zofran [IVP] IVP 4 mg, administered: 11/07/2016 10:48:00 AM The following Medications were prescribed to the patient: None.
--- NOTE | 2016-11-08 16:04 | DIAGNOSTIC IMAGING REPORT ---
PROCEDURE: XR ABDOMEN 1 VIEW UPRIGHT INDICATION: RECHECK NG TUBE PLACEMENT. TECHNIQUE: Single view upright abdomen. COMPARISON: 11/08/1978 08:55 hours FINDINGS: There has been advancement of a nasogastric tube. The tip is now in the distal stomach and the side hole is well within the stomach. There is a coil within the nasogastric tube. There are persistent dilated air-fluid levels in the mid abdominal small bowel loops and a paucity of colon and rectal gas. No free air. IMPRESSION: 1. Adequate placement of nasogastric tube, well within the stomach. 2. Persistent small bowel obstruction. 3. Findings called to the floor.
--- NOTE | 2016-11-08 18:26 | Progress Note ---
Subjective General Patient c/o epigastric pain this am. no nausea/vomitting. Had BM last night. No chest pain or SOB or cough. Physical Exam Vital Signs / I&Os Vital Signs Date Time Temp Pulse Resp B/P Pulse O2 O2 Flow FiO2 Ox Delivery Rate 11/08 1449 Room Air 11/08 1447 36.8 78 18 139/64 96 Room Air 11/08 1108 36.6 73 18 134/64 96 Room Air 11/08 0656 36.7 73 20 135/65 97 Room Air 11/08 0349 37.0 79 18 126/47 93 Room Air 11/07 2344 36.9 88 18 138/55 95 Room Air 11/07 1856 36.7 96 20 143/69 94 Room Air I&O 11/08 0000 11/07 1600 11/07 0800 Intake Total 569 0 Output Total 580 0 Balance -11 0 General Appearance Alert, Cooperative, No acute distress Lungs Clear to auscultation, Normal air movement Cardiovascular Regular rate and rhythm, Normal S1 and S2, No murmurs, gallops, rubs Abdomen Normal bowel sounds, Soft, No tenderness, Mild increase in abdominal distension. Extremities No edema Assessment and Plan Problem List 1. SBO (small bowel obstruction) Plan AXR done and stable or mildly improved today. Will continue to monitor. I increased pantoprazole due to epigastric pain and added metoclompramide. Surgery following.
[2016-11-08 18:29] VITALS: BP 126/73
--- NOTE | 2016-11-08 18:39 | NUR ---
END SHIFT NOTE: PT STABLE, AMBULATING AROUND THE UNIT WITH 1PA AND HER WALKER FROM HOME, MINIMAL ASSIST. PT'S PAIN IS IMPROVED POST REGLAN ADMINISTRATION. 600 MLS OUT OF NG TUBE POST INSERTION, PLACEMENT VERIFICATION VIA ABD XR. PT IS TOLERATING POC, VSS, AFEBRILE, ABLE TO MAKE NEEDS KNOWN, COMPLIANT WITH POC.
--- NOTE | 2016-11-08 22:00 | NUR ---
Patient requested for benadryl for the night but it had made her more anxious. She was made comfortable in bed and was reassured by staff. Her NGTube is attached to aintermittent suction and has been yielding brownish, greenish drainage.
[2016-11-08 23:00] VITALS: BP 126/47
--- NOTE | 2016-11-09 00:24 | NUR ---
PT. IS RESTING IN BED AT THIS TIME. NG TUBE TO IWS, BROWN DRAINAGE NOTED. NG SECURED, PLACEMENT CHECKED. PT. DENIES ABD. PAIN OR NAUSEA. IV FLUIDS INFUSING WITHOUT ISSUES. ABDOMEN SOFTLY DISTENDED, BOWEL TONES PRESENT. CALL LIGHT WITHIN REACH. PT. COOPERATIVE WITH ALL CARE. WCTM.
[2016-11-09 02:01] VITALS: BP 136/61
--- NOTE | 2016-11-09 06:38 | DIAGNOSTIC IMAGING REPORT ---
PROCEDURE: XR ABDOMEN 1 VIEW UPRIGHT INDICATION: Follow-up bowel obstruction. TECHNIQUE: AP upright view. COMPARISON: Comparison is made radiographs on 11/08/2016 and 11/07/2016. FINDINGS: NG tube is coiled in retroflexed in the upper stomach. There are persistent moderately dilated central and right lateral of small bowel loops. There is no evidence of free air. There is an electronic device overlying the left lower thorax. Status post cholecystectomy. IMPRESSION: 1. NG tube coiled in stomach. 2. Persistent moderate small bowel obstruction.
[2016-11-09 06:41] VITALS: BP 128/56
--- NOTE | 2016-11-09 07:06 | Progress Note ---
Subjective General This is an 86-year-old female with a history of colon cancer resulting in partial colectomy presenting to the emergency department with complaints of 4 days of nausea and vomiting and no bowel movement in more than 4 days, likely secondary to a small-bowel obstruction.. This am patient is doing minimally better, has surgical consultation. Has lots of gtube output. She feels better for abdominal pain. NGT in place. Physical Exam Vital Signs / I&Os Vital Signs Date Time Temp Pulse Resp B/P Pulse O2 O2 Flow FiO2 Ox Delivery Rate 11/09 0641 99.0 75 20 128/56 98 Room Air 0.0 11/09 0201 98.4 82 16 136/61 97 Room Air 11/08 2300 98.8 79 18 126/47 93 Room Air 11/08 2200 Room Air 11/08 1829 99.5 80 18 126/73 97 Room Air 11/08 1449 Room Air 11/08 1447 98.2 78 18 139/64 96 Room Air 11/08 1108 97.9 73 18 134/64 96 Room Air I&O 11/09 0000 11/08 1600 11/08 0800 Intake Total 1388 20 1333 Output Total 1110 275 520 Balance 278 -255 813 General Appearance Alert, Cooperative HEENT NGT Lungs Clear to auscultation, Normal air movement Cardiovascular Regular rate and rhythm Abdomen Soft, No tenderness, + mild BS Extremities No edema LAB Results Laboratory Tests 11/09 0530 Chemistry Plasma Sodium (136 - 145 mmol/L) 136 Plasma Potassium (3.5 - 5.1 mmol/L) 3.9 Plasma Chloride (98 - 107 mmol/L) 101 CO2 (Enzymatic) (21 - 32 mmol/L) 27 BUN (7 - 18 mg/dL) 26 Creatinine (0.6 - 1.3 mg/dL) 0.9 Est GFR ( Amer) (mL/min) >60 Est GFR (Non-Af Amer) (mL/min) >60 Glucose (70 - 110 mg/dL) 113 Plasma Calcium (8.5 - 10.1 mg/dL) 8.0 Hematology WBC (4.5 - 11.5 K/uL) 8.1 RBC (4.00 - 5.20 M/uL) 3.76 Hgb (12.0 - 16.0 gm/dL) 12.0 Hct (36.0 - 46.0 %) 35.4 MCV (80 - 100 fL) 94 MCH (26 - 34 pg) 32 RDW (11.6 - 14.8 %) 12.4 Neut % (Auto) (50 - 75 %) 68.0 Lymph % (Auto) (25 - 40 %) 15.5 [place] % (Auto) (3 - 14 %) 15.6 Eos % (Auto) (0 - 4 %) 0.6 Baso % (Auto) (0 - 2 %) 0.3 Plt Count, EDTA (150 - 400 K/uL) 274 PUBS MCHC (31 - 37 g/dL) 34 Assessment and Plan Problem List 1. SBO (small bowel obstruction) Plan Patient with abd pain and SBO improving. Has xray still not better this am. Will have advancement of NGT per surgery as it is sitting coiled in stomach. ? gastrografin SBFT in future.
--- NOTE | 2016-11-09 09:00 | NUR ---
RECEIVED PT IN BED, ON HIGH WILLS'S POSITION. AWAKE, ALERT, ORIENTED, COHERENT, COOPERATIVE. V/S TAKEN AND RECORDED. ASSESSMENT DONE. PT COMPLAINT OF "INDIGESTION. I TAKE OMEPRAZOLE AT HOME" PT STATES. PROTONIX GIVEN IV. PT UNDERSTOOD.
[2016-11-09 11:06] VITALS: BP 128/75
--- NOTE | 2016-11-09 11:27 | NUR ---
PT WENT DOWN TO RADIOLOGY TO REPOSITION NG TUBE. ASSISTED BY MR WILL VIA WHEELCHAIR.
--- NOTE | 2016-11-09 12:25 | NUR ---
RECEIVED PT UP IN THE CHAIR, FROM RADIOLOGY. NG TUBE IS CONNECTED TO LOW INTERMITENT SUCTION. DENIES NAUSEA AND PAIN AT THIS TIME. RELATIVES ARE WITH THE PT. " I AM HUNGRY" PT STATES. MAINTAINED ON NPO. PINK SWABS GIVEN INSTEAD.
[2016-11-09 14:50] VITALS: BP 136/58
--- NOTE | 2016-11-09 15:37 | DIAGNOSTIC IMAGING REPORT ---
PROCEDURE: XR REPOSITION GASTRIC TUBE INDICATION: Small bowel obstruction. Advancement of NG tube requested. TECHNIQUE: 1% lidocaine gel and right nares. Cetacaine spray in the oropharynx. Fluoroscopy time 3.6 minutes (1345.24 mGy). COMPARISON: Comparison is made abdominal radiograph earlier in the day. FINDINGS: Utilizing a 0.038 guidewire and a small amount of gastrographin contrast material, fluoroscopy was utilized to advance the patient's existing nasogastric tube into the fourth portion of the duodenum. IMPRESSION: 1. Successful fluoroscopically guided advancement of nasogastric tube into the fourth portion of the duodenum. 2. Findings discussed with Dr. Benavidez.
--- NOTE | 2016-11-09 15:45 | NUR ---
NUTRITION ASSESSMENT: Pt admitted with dx/o small bowel obstruction and r/o adhesions. Pt with hx/o stage I colon cancer and hx/o colectomy. She has been vomiting for 4 days multiple times a day per admission intake. Other PMH includes HTN, dyslipidemia, osteoporosis, mitral regurgitation, GERD, insomnia, moderate hiatal hernia. Pt is currently NPO with NG suction. Surgery consulting. Diet rx: NPO (day 3) NKFA Wts: 65.2 kg Ht: 59" IBW: 43-55 kg BMI: 29.3 %IBW: 118% Est Kcals: ~1236-2656 kcals per day Est Pro: ~65-80 g per day Est Fluids: ~1700 mls per day Meds Incl: IVFs at 125 mls per hr, reglan, protonix, see emar for details and complete list. Labs incl: (11/09) glucos 113, BUN 26, Creat 0.9, Na+ 136, K+ 3.9, Ca+, HCT 35.4, HGB 12.0, MCV 94, MCH 32 (11/07) albumin 4.3 total pro 8.6 (11/08) A1c: 5.2 (est [address]) Skin: Chadwick Score: 19, waffle overlay in place A: Pt NPO at this time. NG suction, will await surgeons decision on next steps if necessary. Rec start PO when medically appropriate as pt states "im hungry" per nsg notes. Per initial admission MD assess, may need to consider parenteral nutrition if pt with plans for prolonged NPO status. RD to continue to follow up and monitor nutrition indices, oral-nutrition progress. P: 1. Advance diet when medically appropriate.
[2016-11-09 18:10] VITALS: BP 151/62
--- NOTE | 2016-11-09 20:08 | NUR ---
PATIENT IS ALERT AND ORIENTED. SHE HAS HER NG TUBE INTACT. BOWEL TONES PRESENT ALL QUARDRANTS. LUNGS CLEAR NOW. NO C/O N/V NO C/O PAIN. CURRENTLY RESTING IN BED. DR AWARE OF LABS. SCDS IN [facility] AND HAS BEEN WEARING THEM ON AND OFF. HAS ALSO BEEN UP AND AMBULAITNG THROUGOUT THE DAY.
--- NOTE | 2016-11-09 20:12 | NUR ---
CHECKED PLACEMENT OF NG TUBE AND WAS IN PLACE.
[2016-11-09 22:35] VITALS: BP 141/98
--- NOTE | 2016-11-09 22:57 | NUR ---
PATIENT IS ALERT AND ORIENTED. SCDS ON THROUGOUT THE DAY. PATIENT HAS BEEN UP AND AMBULATING. BEEN MONITORING NG TUBE. LISTENED FOR PLACEMENT. WAS IN CORRECT PLACE. DR AWARE OF LABS. NO C/O N/V. NO C/O PAIN. NO C/O SOB TODAY. HAS BEEN IN A GOOD MOOD AND HAPPY. VSS THROUGHOUT DAY.
--- NOTE | 2016-11-10 02:31 | NUR ---
Gave pt 12.5 mg Benadryl to sleep. c/o pain L upper leg. Morphine given & was effective. Has been restless tonight. Periodically assisted to sit @ side of bed. Was mildly nauseated as well. NG placement checked & is functioning well. Nausea is on/off. Voided per BSC. Plan is xray in am. Tele shows SR w/1deg block.
[2016-11-10 02:33] VITALS: BP 136/75
--- NOTE | 2016-11-10 05:55 | DIAGNOSTIC IMAGING REPORT ---
PROCEDURE: XR ABDOMEN 1 VIEW INDICATION: SBO TECHNIQUE: AP supine view. COMPARISON: Upright KUB 11/09/2016 FINDINGS: NG tube is unchanged in position in the stomach with the tip projecting over the gastric cardia. No change in the persistent moderately dilated central and right lateral small bowel loops. Cholecystectomy. No free air. Degenerative changes of the spine and L5 vertebroplasty. IMPRESSION: 1. Stable KUB 2. NG tube coiled in the stomach 3. No change in the moderate small bowel 4. Cholecystectomy
[2016-11-10 06:45] VITALS: BP 141/68
--- NOTE | 2016-11-10 08:22 | Progress Note ---
Subjective General This is an 86-year-old female with a history of colon cancer resulting in partial colectomy presenting to the emergency department with complaints of 4 days of nausea and vomiting and no bowel movement in more than 4 days, likely secondary to a small-bowel obstruction.. Currently is doing ok. Had 100cc/hr x 8 hrs of NGT output. Still not passing much below. No sig pain. Physical Exam Vital Signs / I&Os Vital Signs Date Time Temp Pulse Resp B/P Pulse O2 O2 Flow FiO2 Ox Delivery Rate 11/10 0645 97.9 80 20 141/68 98 Room Air 0.0 11/10 0233 97.5 78 18 136/75 100 Room Air 0.0 11/09 2235 97.9 81 18 141/98 93 Room Air 0.0 11/09 1810 98.8 82 18 151/62 100 Room Air 11/09 1450 98.4 81 18 136/58 100 Room Air 11/09 1106 98.8 60 20 128/75 99 Room Air 0.0 11/09 0900 Room Air 0.0 I&O 11/10 0000 11/09 1600 11/09 0800 Intake Total 999 1298 Output Total 676 315 9266 Balance -300 19 278 General Appearance Alert, Cooperative Lungs Clear to auscultation, Normal air movement Cardiovascular Regular rate and rhythm Abdomen Soft, No tenderness Extremities No edema Assessment and Plan Problem List 1. SBO (small bowel obstruction) Plan Will continue to watch with surgery. Will check on electrolytes and labs for tomorrow. ? gastrografin study when output lowers or as per surgery.
--- NOTE | 2016-11-10 10:32 | NUR ---
NUTRITION FOLLOW UP NOTE: Pt continues NPO, per surgeon notes this am, pt may have Gastrographin small bowel follow through vs surgery? Wts appear to be stable. BUN appears to be trending down. Will continue to monitor closely as pt may need nutrition support if prolonged NPO status, day #4 NPO.
[2016-11-10 10:51] VITALS: BP 143/69
[2016-11-10 14:30] VITALS: BP 137/55
--- NOTE | 2016-11-10 15:00 | NUR ---
SHIFT SUMMARY: PT HAS BEEN UP AMB Q2H IN HALLS TODAY. SHE SPENDS MUCH OF THE TIME IN THE CHAIR SHE STATES IT IS MORE COMFORTABLE ON HER BACK IN THE CHAIR RATHER THAN THE BED. PT DENIED PAIN THIS AM BUT THE DAY WORE ON C/O SOME "HEARTBURN" UPPER ABD DISCOMFORT. SHE DII NOT RECOGNIZE IT PAIN, BUT AGREED TO HAVE A SMALL DOSE OF MORPHINE (1MG) WHICH WAS EFFECTIVE. NGT CONTINUED TO PUT OUT SIGNIFICANT AMOUNTS OF BILE GREEN OUTPUT, SEE I/Os FOR ACTUAL AMOUNT.
[2016-11-10 18:05] VITALS: BP 143/58
--- NOTE | 2016-11-10 18:37 | NUR ---
Ok TO GIVE INFORMATION TO TYRON OVER TELEPHONE.
--- NOTE | 2016-11-10 19:51 | NUR ---
PATIENT IS ALERT AND ORIENTED. LUNG SOUNDS CLEAR. CHECKED NG TUBE PLACEMENT. HAS BEEN DRAINING THROUGHOUT THE DAY. PATIENT HAS BEEN UP AND AMBULATING AROUND THE MONRE[place]. BEEN WEARING SCDS WHILE IN BED TO PREVENT DVT. WAS PASSED OFF IN REPORT WAS AWARE OF HER CURRENT LABS. NO C/O N/V. NO C/O PAIN. NO C/O OF SOB. PATIENT HAS BEEN HAPPY TODAY.
--- NOTE | 2016-11-10 21:32 | NUR ---
CHANGED IV TUBING.
[2016-11-10 23:24] VITALS: BP 149/71
--- NOTE | 2016-11-11 | NUR ---
SITTING ON BEDSIDE CHAIR, NGT TO LIS WITH BILE COLORED DRAINAGE. DENIES NAUSEA AT THIS TIME. STATES ABDOMINAL DISCOMFORT 09/08.
[2016-11-11 02:14] VITALS: BP 144/60
--- NOTE | 2016-11-11 06:35 | DIAGNOSTIC IMAGING REPORT ---
PROCEDURE: XR ABDOMEN 1 VIEW INDICATION: sbo TECHNIQUE: AP supine view. COMPARISON: KUB 11/10/2016 FINDINGS: NG tube stable with the tip in the fourth portion of the duodenum. Persistent moderately dilated loops of small bowel centrally are unchanged. Cholecystectomy. No free air. Degenerative changes of the spine. IMPRESSION: 1. No significant change 2. NG tube with the tip in the fourth portion of the duodenum 3. Moderate small bowel obstruction.
[2016-11-11 07:31] VITALS: BP 129/71
--- NOTE | 2016-11-11 07:38 | Progress Note ---
Subjective General This is an 86-year-old female with a history of colon cancer resulting in partial colectomy presenting to the emergency department with complaints of 4 days of nausea and vomiting and no bowel movement in more than 4 days, likely secondary to a small-bowel obstruction. Patient states that she is doing ok at this time.She has been up walking. Minimal tenderness across the abdomen. Not sure why the gastric tube isn't passing her stomach and is going to have a scope today. Physical Exam Vital Signs / I&Os Vital Signs Date Time Temp Pulse Resp B/P Pulse O2 O2 Flow FiO2 Ox Delivery Rate 11/11 0214 97.9 87 20 144/60 97 Room Air 11/10 2324 98.1 90 20 149/71 94 Room Air 11/10 1805 98.1 87 20 143/58 97 Room Air 11/10 1430 97.9 80 20 137/55 99 Room Air 11/10 1051 97.9 80 20 143/69 97 Room Air 0.0 I&O 11/11 0000 11/10 1600 11/10 0800 Intake Total 0 918 1810 Output Total 2410 767 4717 Balance -1050 218 740 General Appearance Alert, Cooperative Lungs Clear to auscultation, Normal air movement Cardiovascular Regular rate and rhythm Abdomen Soft, No tenderness Extremities No edema LAB Results Laboratory Tests 11/11 11/11 0525 0500 Chemistry Plasma Sodium (136 - 145 mmol/L) 133 Cancelled Plasma Potassium (3.5 - 5.1 mmol/L) 4.5 Cancelled Plasma Chloride (98 - 107 mmol/L) 100 Cancelled CO2 (Enzymatic) (21 - 32 mmol/L) 23 Cancelled BUN (7 - 18 mg/dL) 9 Cancelled Creatinine (0.6 - 1.3 mg/dL) 0.7 Cancelled Est GFR ( Amer) (mL/min) >60 Cancelled Est GFR (Non-Af Amer) (mL/min) >60 Cancelled Glucose (70 - 110 mg/dL) 105 Cancelled Plasma Calcium (8.5 - 10.1 mg/dL) 8.2 Cancelled Total Bilirubin (0.0 - 1.0 mg/dL) 0.8 AST (15 - 37 U/L) 20 ALT (12 - 78 U/L) 23 Alkaline Phosphatase (46 - 116 U/L) 77 Total Protein (6.4 - 8.2 g/dL) 6.5 Albumin (3.3 - 5.0 g/dL) 3.4 Hematology WBC (4.5 - 11.5 K/uL) 9.7 RBC (4.00 - 5.20 M/uL) 3.82 Hgb (12.0 - 16.0 gm/dL) 12.3 Hct (36.0 - 46.0 %) 36.2 MCV (80 - 100 fL) 95 MCH (26 - 34 pg) 32 RDW (11.6 - 14.8 %) 11.9 Neut % (Auto) (50 - 75 %) 72.3 Lymph % (Auto) (25 - 40 %) 13.8 [place] % (Auto) (3 - 14 %) 12.4 Eos % (Auto) (0 - 4 %) 1.3 Baso % (Auto) (0 - 2 %) 0.2 Plt Count, EDTA (150 - 400 K/uL) 325 PUBS MCHC (31 - 37 g/dL) 34 Assessment and Plan Problem List 1. SBO (small bowel obstruction) Plan Patient with SBO. Hx of xrays with tube curled in stomach. Is going to have scope today. Further work up per surgery. Labs stable.
[2016-11-11 11:03] VITALS: BP 132/52
--- NOTE | 2016-11-11 12:44 | NUR ---
NUTRITION FOLLOW UP NOTE: Pt NPO going day 5. Rec consider nutrition support per GLADIS hernandez NPO 5-[address] avail for recommendations, will continue to follow closely.
[2016-11-11 14:28] VITALS: BP 144/62
--- NOTE | 2016-11-11 16:36 | NUR ---
Report received at bedside from Mikayla Brown. Pt denies pain or nausea at this time. NG is patent and draining green fluid. Pt states feeling hungry but understands need to remain npo. Pt is aware of lap procedure tomorrow and will let daughter in law know tonight when she arrives. Bowel tones are hypoactive. VSS. Pt uses walker to ambulate around hallway, has concern with correct outside upholsterer of NG tubing versus IV tubing and needs reassurance as to correct placement. Tele is monitoring heart NSR. WCTM
--- NOTE | 2016-11-11 17:53 | NUR ---
Patient c/o pain in throat due to NG tube 06/08, encouraged ice chips and use of spray for relief. Pain 01/06 in abdomen provided 1 mg morphine. wctm.
[2016-11-11 18:00] VITALS: BP 132/46
--- NOTE | 2016-11-11 19:12 | NUR ---
PT IS C/O THROAT AND NECK PAIN. PROVIDED WARM BLANKET, PT WILL AMBULATE IN HALLWAY THEN THIS RN WILL MONITOR SYMPTOMS AND PROVIDE PAIN MED IF PAIN IN NECK CONTINUES.
--- NOTE | 2016-11-11 23:18 | NUR ---
CALLED DR VILLASENOR TO NOTIFY OF SORE THROAT. ORDERED [facility] COCKTAIL Q4 PRN FOR RELIEF. ORDER FAXED. INFO WILL BE PASSED ON TO KAELYN MARTINES.
[2016-11-11 23:20] VITALS: BP 127/56
[2016-11-12] VITALS (11 sets, daily range): BP systolic 124–151; BP diastolic 51–77
--- NOTE | 2016-11-12 03:17 | NUR ---
PT. IS RESTING IN BED AT THIS TIME. C/O 04/08 SORE THROAT. CLARIFIED WH[facility] GI COCKTAIL ORDER WITH DR. VILLASENOR, IT CONTAINS 2% VISCOUS LIDOCAINE AND MAALOX. PHARMACY INFORMED. ADMINISTERED TO PT., SOME RELIEF ACHIEVED. PT. C/O 02/06 UPPER ABDOMINAL PAIN, MORPHINE ADMINISTERED. NG PATENT AND HOOKED TO LIWS, GREEN DRAINAGE NOTED. PT. WAS SITTING UP IN CHAIR AND IS NOW IN BED RESTING. CALL LIGHT WITHIN REACH. TM.
--- NOTE | 2016-11-12 06:53 | NUR ---
PT. IS CURRENTLY RESTING IN BED AT THIS TIME. ABDOMEN SOFTLY DISTENDED, NOT PASSING GAS. NG TUBE PATENT AND SUCTIONING GREEN SECRETIONS. WENT FOR ABDOMINAL X-RAY THIS AM. MORPHINE GIVEN FOR ABDOMINAL PAIN DURING THE NIGHT. CALL LIGHT WITHIN REACH. TM.
--- NOTE | 2016-11-12 07:12 | Progress Note ---
Subjective General Patient with lots of throat pain with the NGT. Has been getting cetacaine spray and not very helpful. Has also tried to have lidocaine swish/swallow and only helped a little. No sig change in how she is doing. Physical Exam Vital Signs / I&Os Vital Signs Date Time Temp Pulse Resp B/P Pulse O2 O2 Flow FiO2 Ox Delivery Rate 11/12 0636 98.2 82 20 151/51 98 Room Air 11/12 0224 97.9 86 22 147/60 99 Room Air 11/12 0127 0.0 11/11 2320 98.4 92 19 127/56 97 Room Air 11/11 1800 98.2 89 19 132/46 97 Room Air 11/11 1625 Room Air 0.0 11/11 1428 97.5 87 19 144/62 99 Room Air 11/11 1103 98.2 76 20 132/52 96 Room Air 0.0 11/11 0840 Room Air 11/11 0731 97.7 86 20 129/71 96 Room Air 0.0 I&O 11/12 0000 11/11 1600 11/11 0800 Intake Total 1742 0 1633 Output Total 3588 283 5966 Balance -208 -975 283 General Appearance Alert, Cooperative, appears a little mildly uncomfortable. HEENT NGT in place no bleeding or sores noted Lungs Clear to auscultation, Normal air movement Cardiovascular Regular rate and rhythm Abdomen Soft, No tenderness Extremities No edema Imaging NGT in the duodenum now. Assessment and Plan Problem List 1. SBO (small bowel obstruction) Plan Is going to have exp lap today as not improving with the SBO. 2. Throat pain Plan related to the NGT and has tried topicals, will see if able to remove this shortly if surgery successfull.
--- NOTE | 2016-11-12 07:41 | DIAGNOSTIC IMAGING REPORT ---
PROCEDURE: XR ABDOMEN 1 VIEW INDICATION: SBO TECHNIQUE: Single view upright abdomen. COMPARISON: 11/11/2016 FINDINGS: NG tube present, stable position in the proximal jejunum. No free air. Persistent moderately dilated loops of small bowel with air-fluid levels. Left upper quadrant bowel gas is present. Paucity of gas in the rectum. No significant change. Surgical changes of cholecystectomy and kyphoplasty. Demineralized osseous structures are IMPRESSION: 1. No change to findings of small bowel obstruction. 2. NG tube in satisfactory position.
--- NOTE | 2016-11-12 10:23 | NUR ---
NUTRITION FOLLOW UP NOTE: Pt continues NPO today. Procedure today ex lap 2/2 SBO not improving per MD notes. Spoke with Dr. Marie this am regarding my concerns of pts prolonged NPO status. Suggested consider TPN, will await results from procedure today. RD avail for recommendations if nutrition support desired.
--- NOTE | 2016-11-12 12:00 | NUR ---
PT IS HEADING TO SURERY VIA STRETCHER AT THIS TIME.
--- NOTE | 2016-11-12 14:15 | NUR ---
rec'd from OR; SPONT RESP. HOB ELEVATED 30 DEGREES. CATH SECURE ON AND NG TUBE RE-TAPED TO NOSE AND PLACED ON LIS. AWAKE AND REPORTS THAT SHE DOES NOT HAVE ALLERGY TO NSAIDS. "SAID SHE WAS KIDDING."
--- NOTE | 2016-11-12 14:48 | OPERATIVE REPORT ---
DATE OF SURGERY: 11/12/2016 SURGEON: Argenis Benavidez III, MD ACID ETCH OPERATOR: None. PREOPERATIVE DIAGNOSIS: 1. Small-bowel obstruction POSTOPERATIVE DIAGNOSIS: 1. Small-bowel obstruction (internal hernia) and iatrogenic small bowel instrumental perforation PROCEDURE PERFORMED: 1. Diagnostic laparoscopy with reduction of internal small bowel hernia and open repair of iatrogenic enterotomy. ANESTHESIA: General endotracheal. INDICATIONS: The patient is an 86-year-old female admitted to [facility] with nausea, vomiting, and CT consistent with small-bowel obstruction. Conservative efforts at having small bowel resolve was unsuccessful. She is now scheduled for diagnostic laparoscopy. Previous surgeries include laparoscopic cholecystectomy and a sigmoid resection. SURGICAL FINDINGS: The patient was noted to have in the mid ileum, an internal hernia, which was reduced. The distal bowel to that point was completely decompressed. Proximal to that, it was quite distended and thin walled. In the process of evaluation of his bowel, the instrument created an iatrogenic perforation. SURGICAL TECHNIQUE: The patient was brought to the operating room and placed in the dorsal supine position where she underwent general endotracheal anesthesia by the anesthesiology department. After proper anesthesia had taken effect, a Desouza catheter was placed to decompress the bladder. NG tube was already in place. The patient's abdomen was prepped using Betadine and draped in a sterile fashion. An infraumbilical incision made, carried down through skin and subcutaneous tissue. A Veress needle was inserted through this site into the abdominal cavity and after ascertaining its appropriate position with suction irrigation, pneumoperitoneum obtained using CO2 insufflation to approximately 14-15 mmHg pressure. Once this pressure was reached, the Veress needle was removed and replaced with a 10 mm trocar. The trocar removed leaving the sleeve behind, through which a laparoscopic video camera was introduced in the abdominal cavity and under direct visualization, we were able to place a 10 mm trocar in the left anterior mid abdomen and a 5 mm trocar in the left lower quadrant of the abdomen. Each entered the abdominal cavity under direct visualization. The trocars were removed, leaving the sleeves behind, through which laparoscopic instrumentation was introduced into the abdominal cavity. The cecum was identified. The terminal ileum identified and was traced in a retrograde fashion until we came to the site of the obstruction, which under gentle manipulation, we were able to reduce. In the process, we were able to continue examination of the large bowel. In the process, the instrument grasper perforated the mesenteric surface of the small bowel. Immediately this was grasped to control spillage. The pneumoperitoneum released. The infraumbilical trocar site incision was extended for approximately 2 inches. The fascia was divided using electrocautery. The small bowel was delivered into the wound and the enterotomy closed using 2 layers, inner layer of 3-0 Polysorb continuous through and through suture and the outer layer imbricating the suture line with 3 seromuscular [id number] silks. The lumen was palpated and found to be quite adequate. There was no evidence of leak with compression of the bowel. The small bowel was then replaced back within the abdominal cavity and the incision closed using #1 Maxon. The wound was irrigated with warm normal saline and antibiotic solution, infiltrated using local anesthetic and the skin approximated using 4-0 subdermal Polysorb and Steri-Strips. All trocar sites were approximated using 4-0 interrupted Polysorb suture. A sterile occlusive dressing was placed over each site. The patient was placed in an abdominal binder, extubated and transferred to the recovery room in stable condition. There were anesthetic complications. Operative complications, iatrogenic instrumental perforation of the small bowel.
--- NOTE | 2016-11-12 15:13 | NUR ---
LE; NG WITH SCANT AMT OF DARK BROWN-GREEN LIQUID.
--- NOTE | 2016-11-12 15:19 | NUR ---
PT RETURNED FROM SURGERY TO ROOM 210B. SHE IS AWAKE AND APPROPRIATE. PT MOVED SELF TO BED WITH MINIMAL ASSIST. ABD BINDER ON NO BLEEDING OR DRAINAGE NOTED THROUGH BINDER. NGT CONNECTED TO INTERMIT. SUCTION AND HAS GREEN OUTPUT IN TUBING. PT STATES ABD/SURGICAL PAIN IS 8/10, DEMEROL GIVEN ORDERED. WILL CONTINUE TO MONITOR CLOSELY.
--- NOTE | 2016-11-12 23:51 | NUR ---
She wanted to sit up at the edge of the bed. I asked her to do as much as she could on her own, but so far she is barley able to move. I attempted to help her sit up but that proved to be too pain full. I asked her a second time about her pain level, this time she answered me and said her pain was an 8. I informed her rn. RN is looking into pain meds for her.
[2016-11-13 02:00] VITALS: BP 120/70
--- NOTE | 2016-11-13 06:30 | NUR ---
notified regarding 250 UOP total in last 10 hrs. no new orders. WCTM.
[2016-11-13 06:32] VITALS: BP 132/49
--- NOTE | 2016-11-13 07:35 | Progress Note ---
Subjective General Patient has some nausea and vomiting this am. Is post op and has a "scope" to be done today. Is feeling ok other than her bowels. No cp,sob. Physical Exam Vital Signs / I&Os Vital Signs Date Time Temp Pulse Resp B/P Pulse O2 O2 Flow FiO2 Ox Delivery Rate 11/13 0632 99.0 84 20 132/49 95 Room Air 11/13 0200 99.1 106 22 120/70 96 Room Air 11/12 2313 98.4 94 18 143/64 95 Room Air 11/12 2020 Room Air 11/12 1800 99.3 103 20 124/77 95 Room Air 11/12 1703 98.6 102 20 140/59 94 Room Air 11/12 1630 97.9 103 18 143/62 94 Room Air 11/12 1601 98.1 92 18 144/59 94 Room Air 11/12 1545 98.1 81 18 142/55 91 Room Air 11/12 1527 98.2 77 18 138/64 93 Room Air 11/12 1510 98.1 84 18 138/53 96 Room Air 11/12 1442 76 15 140/58 96 11/12 1430 99.0 81 18 139/47 96 11/12 1420 83 18 125/81 84 11/12 1410 76 17 136/90 96 11/12 1402 77 16 138/59 96 11/12 1357 98.4 63 13 132/42 100 8.0 11/12 1022 98.4 77 19 146/53 99 Room Air I&O 11/13 0000 11/12 1600 16 0800 Intake Total 2794 1169 Output Total 500 2150 825 Balance -500 644 344 General Appearance Alert, Cooperative HEENT Normal exam Lungs Clear to auscultation, Normal air movement Cardiovascular Regular rate and rhythm Abdomen mild tenderness appropriate. Extremities Normal exam Assessment and Plan Problem List 1. SBO (small bowel obstruction) Plan Is now post op with internal hernia and iatrogenic bowel damage. Will check on labs this am and tomorrow. SBFT to be done today 2. Nausea & vomiting Plan Will see if she does better with SBO and NGT now adjusted this am ? if wasn't working so well.
[2016-11-13 09:56] VITALS: BP 132/68
--- NOTE | 2016-11-13 10:23 | DIAGNOSTIC IMAGING REPORT ---
PROCEDURE: XR ABDOMEN 1 VIEW INDICATION: s/p laproscopic reduction internal hernia of SBO TECHNIQUE: AP supine view. COMPARISON: KUB 04/01/2016 17. FINDINGS: NG tube has been pulled back into the second/third portion of the duodenum. Persistent moderately dilated loops of small bowel with air-fluid levels. Paucity of gas in the rectum. There is no free air. Cholecystectomy and L5 vertebroplasty. IMPRESSION: 1. NG tube pulled back to the second/third portion of the duodenum 2. Small bowel obstruction, unchanged
--- NOTE | 2016-11-13 11:22 | NUR ---
NUTRITION FOLLOW UP NOTE: Spoke with Dr. Tovar this am, states pt to have gastrographin study today. If it goes well then she will likely start eating. RD suggests TPN if pt not able to start PO intake. Will continue to follow closely.
--- NOTE | 2016-11-13 12:00 | NUR ---
PT GIVEN GASTROGRAFFIN THROUGH NG TUBE THIS AM @ 0800. SHE HAS VOMITED A FEW TIMES. CAME BACK FROM RADIOLOGY FOR THE 2ND TIME AND NG TUBE HAD FALLEN OUT. REPLACED NG IN THE RIGHT NARE. PLACEMENT CHECKED AND PATENT. WILL GO BACK TO RADIOLOGY @ 1400.
[2016-11-13 14:29] VITALS: BP 148/66
--- NOTE | 2016-11-13 15:30 | NUR ---
TOTAL EMESIS OUTPUT 1000cc. DR CHAVEZ NOTIFIED. NEW ORDERS RECEIVED. WILL START LR W/30meq KCL AND PLACE PT BACK TO LIS. 500cc BOLUS OF LR GIVEN @ 1330. LUNG SOUNDS CLEAR. WCTM.
--- NOTE | 2016-11-13 16:30 | NUR ---
HR INCREASED SUDDENLY TO 150 BPM WITH A RAPID VENTRICULAR RESPONSE. METOPROLOL GIVEN AND HR CAME DOWN TO 90 BPM WITH A RHYTHM OF A-FIB/FLUTTER. PT ASYMPTOMATIC. DENIES CHEST PAIN OR DISCOMFORT. UO LOW WITH 100cc OUT IN [address] VILLASENOR NOTIFIED AND NEW ORDERS RECEIVED. UROMETER PLACED TO MONITOR UO DURING THE NIGHT.
[2016-11-13 17:34] VITALS: BP 157/52
--- NOTE | 2016-11-13 19:00 | NUR ---
STARTED ANOTHER 500cc LR BOLUS FOR LOW URINARY OUTPUT.
--- NOTE | 2016-11-13 21:06 | DIAGNOSTIC IMAGING REPORT ---
PROCEDURE: CT ABDOMEN/PELVIS W/O CONTRAST INDICATION: FOLLOW UP XR SBFT TECHNIQUE: Axial CT images were obtained through the abdomen and pelvis without IV contrast. Coronal and sagittal reformations were created. COMPARISON: 11/07/2016 FINDINGS: The distal esophagus and moderate size hiatal hernia are filled with oral contrast. A nasogastric tube is present whose tip terminates in the distal esophagus. Stomach is moderately distended with an air-fluid level. The duodenum and proximal jejunum bowel loops are very distended. There is a wide necked epigastric bowel containing ventral hernia. A small amount of extraluminal gas is present within the hernia sac outset the bowel. Small amounts of extraluminal gas are present in the region of the falciform ligament, under the diaphragm, and anteriorly secondary to the patient's laparoscopy the kidneys symmetrically excrete a small amount of contrast. No changes to the solid organs of the upper abdomen. There are decompressed small bowel loops in the right lower quadrant which contain small amounts of contrast. There is a loop of ileum in the right lower quadrant with moderate wall edema. Low in the pelvis, there appears to be an amorphous collection of fluid, gas, and a small amount of contrast. This measures approximately 8.6 x 5.0 by 4.1 cm. Trace amount of high density material, presumably early contrast opacification is seen in the distal ileum. The colon is completely decompressed. There is a surgical staple ring at the rectosigmoid of remote resection and anastomosis. A Desouza catheter completely decompresses urinary bladder which contains a small amount of contrast. There is a small amount of free fluid posteriorly in the pelvis. At complete obstructing transition point is not evident. IMPRESSION: 1. Severe high-grade partial obstruction versus severe ileus. 2. Low pelvic collection of gas, fluid, and potentially small contrast. While this may be normal cecum in an usual position, an atonic segment of small bowel, there is a possibility of hollow viscus perforation and early abscess. Continued attention to this area on follow-up plain films is recommended. 3. Bowel containing but not completely obstructive epigastric ventral hernia. 4. Small amount of free pelvic fluid and intraperitoneal free air, expected postoperative findings. 5. Hiatal hernia with distal esophageal reflux of gastrographin. NG tube is also coiled in the distal esophagus. Repositioning was discussed with the RN. 6. Preliminary findings discussed with Dr. Benavidez. All CT scans at this facility use dose modulation, iterative reconstruction, and/or weight-based dosing when appropriate to reduce radiation dose to as low as reasonably achievable.
--- NOTE | 2016-11-13 21:12 | DIAGNOSTIC IMAGING REPORT ---
PROCEDURE: XR SMALL BOWEL FOLLOW THROUGH INDICATION: s/p lap reduction internal hernia for sbo and enterotomy rep TECHNIQUE: The patient was administered 240 ml of gastrographin via the indwelling nasogastric tube. Film of the abdomen at 30 minutes, 1 hour 45 minutes, 3 hours, 5 hours, and 8 hours. COMPARISON: Plain film of the abdomen performed earlier the same morning, 05:22 a.m. FINDINGS: The initial film demonstrates interval withdrawal of the nasogastric tube with the tip to the proximal stomach. There is reflux of contrast into a small hiatal hernia and in the distal esophagus. The duodenal sweep is dilated as are the proximal jejunal loops. Subsequent films demonstrate filling of significantly dilated jejunal loops with progressive dilatation of the duodenal loops. 8 hours, there is diffuse opacification over the much of the abdomen without good definition of bowel loops. There is nonspecific opacification in the pelvis. A CT was then performed. At the 1 hour 45-minute film and three or film, the NG tube is not well seen. On the eight hour film, it was noted that the tip had been withdrawn out of the stomach and curled in the hiatal hernia with the tip directed cranially. IMPRESSION: 1. Findings suggestive of significant ileus, likely bowel edema causing high-grade partial bowel obstruction. 2. Interval withdrawal and malposition of nasogastric tube on the final film. 3. Preliminary findings discussed with Dr. Benavidez and with the patient's nurse on the floor.
[2016-11-13 22:56] VITALS: BP 116/66
--- NOTE | 2016-11-13 23:49 | NUR ---
2120 UNABLE TO ADVANCE NG TUBE FROM 50CM TO 65 CM PER MD GRANTS ORDERS. REPLACE NG TUBE WITH AN 18GUAGE IN RIGHT NARE. PLACEMENT VERIFIED BY AUSCULTATION AND ABDOMINAL XR. SECURED AT 65CM AT THE NARE. PT TOLERATED WELL, GOOD OUTPUT, DARK GREEN. LOW INTERMITTENT WALL SUCTION. PLEASE REFER TO I & O TAB FOR QUANTITIES. WCTM.
[2016-11-14] VITALS (10 sets, daily range): BP systolic 115–147; BP diastolic 59–76
--- NOTE | 2016-11-14 00:35 | DIAGNOSTIC IMAGING REPORT ---
PROCEDURE: XR ABDOMEN 1 VIEW INDICATION: VERIFY NG PLACEMENT TECHNIQUE: Single view upright abdomen. COMPARISON: Small bowel follow-through performed the same day FINDINGS: The nasogastric tube has been replaced. The distal portion is now in the stomach. The tube is coiled in the stomach and the tip is directed cranially. The side-hole is lateral. Trace amount of free air under the diaphragm. Vague contrast within the upper bowel loops. Surgical clips in the gallbladder fossa. Interval resolution of contrast within the hiatal hernia and distal esophagus. Low lung volumes. Normal cardiomediastinal contour. Heavy calcified biapical pleural plaquing. Minor bibasilar atelectasis in the lungs. IMPRESSION: 1. NG tube in satisfactory position within the stomach. 2. Trace amount of intraperitoneal air from recent surgical procedure. 3. Nonspecific bowel opacification secondary to small bowel follow-through performed the same day.
--- NOTE | 2016-11-14 10:11 | DIAGNOSTIC IMAGING REPORT ---
PROCEDURE: XR ABDOMEN 1 VIEW INDICATION: f/u SBFT and ck for free air and NG position TECHNIQUE: AP supine view. COMPARISON: KUB, small bowel follow-through and CT abdomen/pelvis 11/13/2016. FINDINGS: NG tube tip in the stomach. There are multiple moderately to markedly dilated loops of small bowel with air-fluid levels primarily in the right upper quadrant but the no definite evidence of free air. There is residual contrast throughout the remainder of the dilated small bowel. Cholecystectomy of vertebral plasty. Osseous structures are unremarkable. IMPRESSION: 1. NG tube in place 2. High-grade small bowel obstruction. No definite evidence of free air. 3. Results discussed with Dr. Benavidez
--- NOTE | 2016-11-14 11:28 | Progress Note ---
Subjective General Patient is here for follow up. Is doing fair this am. Still joking with family and friends. Has lots on NGT output still. Some decrease in UO. Has abdominal pain post op. Physical Exam Vital Signs / I&Os Vital Signs Date Time Temp Pulse Resp B/P Pulse O2 O2 Flow FiO2 Ox Delivery Rate 11/14 1018 98.2 89 21 139/65 93 Room Air 11/14 0915 Room Air 11/14 0700 97.5 112 19 136/69 93 Room Air 11/14 0129 98.2 108 16 129/64 91 Room Air 0.0 11/13 2256 98.1 108 16 116/66 91 Room Air 0.0 11/13 2000 Room Air 11/13 1734 98.1 103 18 157/52 96 11/13 1429 98.8 103 18 148/66 96 I&O 11/14 0000 11/13 1600 11/13 0800 Intake Total 795 786 8811 Output Total 2325 1125 550 Balance -1692 -625 1195 General Appearance Alert, Cooperative HEENT NGT Abdomen tender diffusely post op with abdominal binder Extremities No edema LAB Results Laboratory Tests 11/14 0530 Chemistry Plasma Sodium (136 - 145 mmol/L) 142 Plasma Potassium (3.5 - 5.1 mmol/L) 4.4 Plasma Chloride (98 - 107 mmol/L) 101 CO2 (Enzymatic) (21 - 32 mmol/L) 26 BUN (7 - 18 mg/dL) 25 Creatinine (0.6 - 1.3 mg/dL) 1.4 Est GFR ( Amer) (mL/min) 45.93 Est GFR (Non-Af Amer) (mL/min) 37.89 Glucose (70 - 110 mg/dL) 94 Plasma Calcium (8.5 - 10.1 mg/dL) 9.2 Total Bilirubin (0.0 - 1.0 mg/dL) 0.9 AST (15 - 37 U/L) 21 ALT (12 - 78 U/L) 21 Alkaline Phosphatase (46 - 116 U/L) 98 Total Protein (6.4 - 8.2 g/dL) 6.2 Albumin (3.3 - 5.0 g/dL) 3.0 Hematology WBC (4.5 - 11.5 K/uL) 18.7 RBC (4.00 - 5.20 M/uL) 3.91 Hgb (12.0 - 16.0 gm/dL) 12.3 Hct (36.0 - 46.0 %) 36.9 MCV (80 - 100 fL) 94 MCH (26 - 34 pg) 31 RDW (11.6 - 14.8 %) 12.3 Neut % (Auto) (50 - 75 %) 85.7 Lymph % (Auto) (25 - 40 %) 5.4 Garden % (Auto) (3 - 14 %) 8.1 Eos % (Auto) (0 - 4 %) 0 Baso % (Auto) (0 - 2 %) 0.8 Plt Count, EDTA (150 - 400 K/uL) 417 PUBS MCHC (31 - 37 g/dL) 33 Assessment and Plan Problem List 1. SBO (small bowel obstruction) Plan Post op and still with SBO and will have repeat to surgery at this time. May consider TPN with surgery. 2. Leukocytosis Plan Has elevated WBC ? if there could be infection in abdomen, going back to surgery will consider abx for possible bowel perforation. 3. Dehydration Plan Has been getting boluses of fluids with decrease in UO and continues to have some low UO and BUN/CR increasing. Will be getting more fluids intraoperatively and will bolus 500 NS at this time then monitor post op and bolus more fluids for low UO watching for respiratory issues and CHF.
--- NOTE | 2016-11-14 15:49 | NUR ---
1505- PT TX ON BED TO [facility], OBTAINED CONSENT FROM PATIENT WITH DAUGHTERS BY HER SIDE. THEY WANT TO TALK TO DR CHAVEZ BEFORE SURGERY, TALKED TO PTS NEICE THIS AM BEFORE DAUGHTERS ARRIVED. NO ANTIBIOTIC ORDERED, ORDER OBTAINED FROM DR CHAVEZ IV HAD BEEN HEP LOCKED, IV BAG PLACED
--- NOTE | 2016-11-14 16:11 | NUR ---
PT EXTUBATED IN OR
--- NOTE | 2016-11-14 16:24 | NUR ---
TX TO PACU ON BED, REPORT TO DENTURES TO PACU WITH PT.
--- NOTE | 2016-11-14 16:33 | NUR ---
DROWSY ON ARRIVAL TO PACU, O2 VIA MASK, ABDONIMAL BINDER IN PLACE, DRESSINGS COVERED. EKG RTHYTHM A FIB DELGADO TO GRAVITY DRAINAGE
--- NOTE | 2016-11-14 17:00 | NUR ---
RECEIVED PT FROM PACU DROWSY. EASILY AWAKENS TO VOICE AND FALLS DIRECTLY BACK TO SLEEP. TROCAR DRESSINGS CDI AND RADHA DRAIN IN PLACE DRAINING A MINIMAL AMOUNT OF SERO-SANG FLUID. BINDER IN PLACE AND NG PLACED TO LIS. PICC LINE WILL BE PLACED LATER THIS PM FOR TPN ORDERS IN THE AM.
--- NOTE | 2016-11-14 17:13 | NUR ---
ALERT, TALKATIVE AT TIME OF TRANSFER TO ROOM, UNDERSTANDS NO UNUSUAL FINDINGS DISCOVERED WITH DIAGNOSTIC LAPAROSOPY. TO START TPN FOR NUTRITIONAL INTAKE.
--- NOTE | 2016-11-14 19:29 | DIAGNOSTIC IMAGING REPORT ---
PROCEDURE: XR CHEST 1 VIEW INDICATION: PICCLINE PLACEMENT TECHNIQUE: Portable AP view 07:18 p.m. COMPARISON: Chest x-ray 08/07/2014 FINDINGS: Interval placement of a right PICC line with the tip in the SVC. NG tube coiled in the stomach. Poor inspiration with mild bibasilar atelectasis. Biapical calcified pleural plaques. Mild cardiomegaly. Mediastinum and pulmonary vessels are normal. Thorax is normal. IMPRESSION: 1. Right PICC line in satisfactory position 2. NG tube in the stomach 3. Mild cardiomegaly 4. Results called to respiratory (Lux).
--- NOTE | 2016-11-15 01:19 | OPERATIVE REPORT ---
DATE OF SURGERY: 11/14/2016 SURGEON: Argenis Benavidez III, MD ENVIRONMENTAL SAFETY SPECIALIST: None. PREOPERATIVE DIAGNOSIS: 1. Rule out small bowel leak POSTOPERATIVE DIAGNOSIS: 1. Ileus PROCEDURE PERFORMED: 1. Diagnostic laparoscopy ANESTHESIA: General endotracheal. COMPLICATIONS: There were no intraoperative or anesthetic complications. FLUIDS: Estimated blood loss none, which required 700 mL of lactated Ringer's. PATHOLOGY SPECIMEN: Specimen sent to laboratory: None. URINE OUTPUT: 25 mL. DRAINS: Drain left behind was a 10 mm Gary-Simmons. INDICATIONS: The patient is an 86-year-old female, postoperative day 2, laparoscopic reduction of internal hernia and repair of small-bowel enterotomy. The patient underwent Gastrografin small-bowel follow-through, which showed a very slow transit. This was followed by CT scan, which showed possible contrast material into the pelvis consistent with a leak of her small bowel. The patient states that she feels fine since they upped her pain medications, but she has continued not to pass any flatus or have a bowel movement. Her white count, however, this morning jumped to 18.7. Her abdomen was distended; tympanitic; and incisional tenderness, as expected. I felt I would rather perform a normal diagnostic laparoscopy than sit on a perforation, especially with her white count 18.7 and the patient tachycardic to 112, although normal temperature. SURGICAL FINDINGS: The patient was noted to have a distended bowel. There is no evidence of purulent material within the abdominal cavity. There was no evidence of succuss entericus in the abdominal cavity. There was no evidence of contrast medium in the pelvis. Following the small bowel from the terminal ileum up to our site of enterotomy repair looked completely normal. There was no evidence of kinking or gross stenoses. SURGICAL TECHNIQUE: The patient was brought to the operating room and placed in the dorsal supine position where she underwent general endotracheal anesthesia by the anesthesiology department. After proper anesthesia had taken effect, the patient 's abdomen was prepped using Betadine and draped in a sterile fashion. A supraumbilical incision was made and carried down through skin and subcutaneous tissue. A Veress needle was inserted through this site into the abdominal cavity. After ascertaining its appropriate position with suction irrigation, pneumoperitoneum obtained using CO2 insufflation to approximately 14-15 mmHg pressure. Once this pressure was reached, the Veress needle was removed and replaced with a 10 mm trocar. The trocar removed, leaving the sleeve behind, through which a laparoscopic video camera was introduced into the abdominal cavity. Under direct visualization, a 5 mm trocar was placed in the left lower quadrant through her previous incision site, and a separate 10 mm trocar was placed in the left mid abdomen through a previous incision site. Each entered the abdominal cavity under direct visualization. The trocars were removed, leaving the sleeves behind , through which laparoscopic instrumentation was introduced in the abdominal cavity. Systematic exploration of the abdominal cavity revealed the aforementioned findings. Again, there was no gross evidence of stenoses or kinking that we could appreciate that would account for her prolonged ileus; i.e., small-bowel obstruction. There was no evidence of enteric repair leak. The abdominal cavity was irrigated copiously with warm normal saline and antibiotic solution. A 10 mm Gary-Simmons drain was placed in the pelvis, brought out through the most inferior trocar site in the left lower quadrant, secured using 3-0 nylon, and attached to bulb suction. Pneumoperitoneum released and all trocar sites approximated using 4-0 subdermal Polysorb and Steri-Strips. A sterile pressure occlusive dressing was placed over each site. The patient tolerated the procedure well, extubated, and transferred to the recovery room in stable condition.
--- NOTE | 2016-11-15 02:31 | NUR ---
1900 PATIENT RECENTLY BACK FROM PACU. PATIENT WAS VERY SLEEPY/DROWSY UNTIL APPROX. 2300 LAST NOC, THEN EXPERIENCED SOME NAUSEA AND PAIN. MEDICATED ACCORDINGLY. PT 95% ON 4L O2 NC. ONCE STABLE, WE WERE ABLE TO BEGIN AMBULATING IN [place] AT MIDNIGHT. PT TOLERATED FAIRLY, SOME SOB EXPERIENCED. C/O GENERALIZED WEAKNESS. URINE OUTPUT IS INCREASING, DELGADO DRAINING APPROPRIATELY TO GRAVITY. NG TO LIWS, CLEAR GREEN OUTPUT. RADHA HAS SEROSANG DRAINAGE, STRIPPING Q2HRS. TROCAR SITES HAVE SOME DRY OLD SEROSANG DRAINAGE. PT UP IN CHAIR AT THIS TIME. WCTM.
[2016-11-15 03:48] VITALS: BP 121/53
[2016-11-15 06:31] VITALS: BP 134/64
--- NOTE | 2016-11-15 06:36 | DIAGNOSTIC IMAGING REPORT ---
PROCEDURE: XR ABDOMEN 1 VIEW INDICATION: Follow-up small bowel obstruction or ileus. Recent surgery. TECHNIQUE: AP upright view (0545 hours) COMPARISON: Comparison made abdominal radiographs (11/14/2016, 11/13/2016), and CT abdomen and pelvis (11/13/2016). FINDINGS: There has been mild improvement with decreasing bowel distention. NG tube in ends in distal stomach. There is no evidence of free air. There is some residual contrast in the lower pelvis. IMPRESSION: 1. Mild improvement with resolving bowel distention. Findings suggest resolving ileus/obstruction.
--- NOTE | 2016-11-15 06:57 | NUR ---
pt up in chair at this time. ambulating the halls often, tolerating this well. titrated down to 1L O2 NC, 94%. UOP has increased: 3773-3168 45cc UOP, bolused 500cc 0042-0552 55cc UOP, bolused 500cc 6764-0215 75cc UOP 0890-6526 20cc UOP, bolused 500cc 0242-3823 100cc UOP 0530-now 250cc UOP. pain controlled with demerol. tele is reading a fib, rate 85. asymptomatic. no N/V at this time. NG to LIWS, still secured at 65 at right nare. 50cc clear green output. WCTM.
[2016-11-15 10:39] VITALS: BP 131/62
--- NOTE | 2016-11-15 13:32 | Progress Note ---
Subjective General 86 y.o female who is post op exploratory lap x 2 with SBO. Is improving with some of her labs at this time. Is with adequate UO. Has been up and walking but not passing gas. NGT output improving per nursing. Physical Exam Vital Signs / I&Os Vital Signs Date Time Temp Pulse Resp B/P Pulse O2 O2 Flow FiO2 Ox Delivery Rate 11/15 1039 98.2 104 20 131/62 92 Room Air 11/15 0725 1.0 11/15 0636 94 Nasal 1.0 Cannula 11/15 0631 98.1 89 19 134/64 92 Room Air 11/15 0348 98.8 93 18 121/53 97 Nasal 4.0 Cannula 11/14 2240 98.2 88 18 137/59 96 Nasal 4.0 Cannula 11/14 2000 Nasal 4.0 Cannula 11/14 1830 80 20 115/63 95 Nasal 4.0 Cannula 11/14 1805 98.4 80 20 127/61 96 Nasal 4.0 Cannula 11/14 1800 4.0 11/14 1745 98.2 79 20 122/59 95 Nasal 4.0 Cannula 11/14 1730 98.6 79 20 129/64 95 Nasal 4.0 Cannula 11/14 1717 97.9 90 20 135/66 95 Nasal 4.0 Cannula 11/14 1655 84 14 132/50 98 MASK 6.0 /18 1650 82 18 136/48 98 MASK 6.0 /18 1645 88 14 133/48 99 MAASK 6.0 / 1640 88 14 130/51 98 MASK 6.0 /18 1635 97.3 86 14 136/83 98 MASK 6.0 /18 1630 93 14 136/53 99 Mask 6.0 /18 1625 90 14 133/62 100 Face Tent 6.0 18 1622 97.5 83 16 129/58 99 Face Tent 6.0 /18 1500 98.2 90 20 147/76 87 Room Air I&O 11/15 0000 11/14 1600 11/14 0800 Intake Total 100 2117 2321 Output Total 125 790 350 Balance -25 1327 1971 General Appearance Alert, Cooperative Lungs coarse BS non focal. Cardiovascular irregularly irregular HR Abdomen binder, no sig BS, appropriatrly tender. Extremities tr edema LAB Results Laboratory Tests 11/15 0620 Chemistry Plasma Sodium (136 - 145 mmol/L) 139 Plasma Potassium (3.5 - 5.1 mmol/L) 4.0 Plasma Chloride (98 - 107 mmol/L) 104 CO2 (Enzymatic) (21 - 32 mmol/L) 28 BUN (7 - 18 mg/dL) 19 Creatinine (0.6 - 1.3 mg/dL) 0.8 Est GFR ( Amer) (mL/min) >60 Est GFR (Non-Af Amer) (mL/min) >60 Glucose (70 - 110 mg/dL) 112 Plasma Calcium (8.5 - 10.1 mg/dL) 8.0 Total Bilirubin (0.0 - 1.0 mg/dL) 0.5 AST (15 - 37 U/L) 18 ALT (12 - 78 U/L) 16 Alkaline Phosphatase (46 - 116 U/L) 80 Total Protein (6.4 - 8.2 g/dL) 5.2 Albumin (3.3 - 5.0 g/dL) 2.4 Hematology WBC (4.5 - 11.5 K/uL) 14.0 RBC (4.00 - 5.20 M/uL) 3.33 Hgb (12.0 - 16.0 gm/dL) 10.5 Hct (36.0 - 46.0 %) 31.6 MCV (80 - 100 fL) 95 MCH (26 - 34 pg) 32 RDW (11.6 - 14.8 %) 12.5 Neut % (Auto) (50 - 75 %) 87.2 Lymph % (Auto) (25 - 40 %) 6.3 [place] % (Auto) (3 - 14 %) 6.1 Eos % (Auto) (0 - 4 %) 0.1 Baso % (Auto) (0 - 2 %) 0.3 Plt Count, EDTA (150 - 400 K/uL) 331 PUBS MCHC (31 - 37 g/dL) 33 Assessment and Plan Problem List 1. SBO (small bowel obstruction) Plan Is post op x 2 and doing ok at this time. 2. Leukocytosis Plan Improved this am. 3. Nausea & vomiting Plan Still with SBO. Improved overall. 4. Dehydration Plan Has borderline low UO. Will continue to replace fluids and bolus PRN. Changing to TPN and total rate 150cc/hr at this time.
[2016-11-15 14:46] VITALS: BP 135/61
--- NOTE | 2016-11-15 15:34 | NUR ---
Pharmacy To Dose TPN Dx-SBO s/p diagnostic lap day 2 Labs- Scr 1.4 CrCl 24 ml/min Wt 66 kg Ht 150 cm Albumin 2.4 Perico Ca 9.28 Al other labs WNL Estimated daily Calories (25 cals/kg) = 1650 cals Estimated Lipid Need 20% of 250 GM = 50 gm = 450 cals Estimated Dextrose Need = 236 gm = 804 cals Estimated AA Need (1.5GM/kg) = 99 gm =396 cals A/P-Clinimix E 4.25/10 at 85 ml/hr. Will run at 40 ml/hr x 2 hrs then full rate thereafter. C12, Phos and Mag ordered with AM labs. Pharmacy will cont to follow.
[2016-11-15 18:51] VITALS: BP 141/67
[2016-11-15 22:30] VITALS: BP 141/78
--- NOTE | 2016-11-16 00:56 | NUR ---
Pt initially up in chair. Just returned to bed. Med w/Demerol for 4/10 Abd pain. Abd binder on. Trochar sites intact. LLQ RADHA stripped/emptied for pink drainage. NG (63 cm @nares) to LIS w/scant thin faint green drainage. TPN/Lipids/LR infusing. BS check 134. UOP over last 6 hrs (since bolus given) is 200cc which averages to 33 ml/hr, so will only continue to monitor. Urine is cloudy per colbert. Plan is labs per PICC in am. Tele shows a.fib 90's.
[2016-11-16 02:32] VITALS: BP 163/71
[2016-11-16 06:49] VITALS: BP 150/87
--- NOTE | 2016-11-16 07:32 | Progress Note ---
Subjective General Patient feels she may be doing a little better. Has been tolerating the TPN. No fevers. Has some bowel sensation like things starting to move a little though no gas yet. Physical Exam Vital Signs / I&Os Vital Signs Date Time Temp Pulse Resp B/P Pulse O2 O2 Flow FiO2 Ox Delivery Rate 11/16 0649 97.0 94 20 150/87 94 Nasal 2.0 Cannula 11/16 0232 97.7 88 20 163/71 97 Nasal 2.0 Cannula 11/16 0051 Nasal 2.0 Cannula 11/15 2230 98.4 93 16 141/78 95 Nasal 2.0 Cannula 11/15 2035 1.0 11/15 1851 97.9 91 20 141/67 95 Room Air 1.0 11/15 1637 90 Room Air 11/15 1446 97.9 93 18 135/61 Room Air 1.0 11/15 1039 98.2 104 20 131/62 92 Room Air 11/15 1000 Room Air 2.0 11/15 0725 1.0 I&O 11/16 0000 11/15 1600 11/15 0800 Intake Total 1408 1012 2233 Output Total 138 230 560 Balance 5791 357 8512 General Appearance Alert, Cooperative, No acute distress HEENT NG tube Lungs Clear to auscultation, Normal air movement Cardiovascular Regular rate and rhythm Abdomen Soft, + BS mild Extremities No edema LAB Results Laboratory Tests 11/16 11/16 0515 0515 Chemistry Plasma Sodium (136 - 145 mmol/L) 137 Plasma Potassium (3.5 - 5.1 mmol/L) 3.8 Plasma Chloride (98 - 107 mmol/L) 104 CO2 (Enzymatic) (21 - 32 mmol/L) 28 BUN (7 - 18 mg/dL) 16 Creatinine (0.6 - 1.3 mg/dL) 0.6 Est GFR ( Amer) (mL/min) >60 Est GFR (Non-Af Amer) (mL/min) >60 Glucose (70 - 110 mg/dL) 122 Plasma Calcium (8.5 - 10.1 mg/dL) 7.5 Phosphorus (2.5 - 4.9 mg/dL) 2.8 Plasma Magnesium (1.8 - 2.4 mg/dL) 1.8 Total Bilirubin (0.0 - 1.0 mg/dL) 0.3 AST (15 - 37 U/L) 15 ALT (12 - 78 U/L) 14 Alkaline Phosphatase (46 - 116 U/L) 70 Total Protein (6.4 - 8.2 g/dL) 4.7 Albumin (3.3 - 5.0 g/dL) 2.0 Hematology WBC (4.5 - 11.5 K/uL) 10.5 RBC (4.00 - 5.20 M/uL) 3.09 Hgb (12.0 - 16.0 gm/dL) 9.9 Hct (36.0 - 46.0 %) 29.1 MCV (80 - 100 fL) 94 MCH (26 - 34 pg) 32 RDW (11.6 - 14.8 %) 12.4 Neut % (Auto) (50 - 75 %) 79.7 Lymph % (Auto) (25 - 40 %) 9.4 [place] % (Auto) (3 - 14 %) 8.5 Eos % (Auto) (0 - 4 %) 1.8 Baso % (Auto) (0 - 2 %) 0.6 Plt Count, EDTA (150 - 400 K/uL) 290 PUBS MCHC (31 - 37 g/dL) 34 Assessment and Plan Problem List 1. SBO (small bowel obstruction) Plan Is doing ok at this time post op. 2. Leukocytosis Plan Patient is doing well with SBO improving slowly. 3. Dehydration Plan REally good UO. Will decrease on IVF at this time.
--- NOTE | 2016-11-16 08:13 | NUR ---
In to see patient, pressure ulcer prevention education given. Checked pressure ulcer areas,no occiput discomfort, sacrum intact, no erythema, Bilat heels with small bruising, pt reports hit on IV pole, 2 days prior, skin dry to bilat LE-applied moisturizer, will continue to monitor.
[2016-11-16 10:25] VITALS: BP 154/72; BP 178/80
[2016-11-16 14:20] VITALS: BP 146/84
[2016-11-16 18:15] VITALS: BP 161/82
--- NOTE | 2016-11-16 20:21 | NUR ---
PT A/O X 3, PLEASANT AND COOPERATIVE. PT WALKING FREQUENTLY IN HALLS WITH WALKER - TOLORATING WELL. RADHA DRAINING SERO/SANG FLUID, DRESSINGS D/I, ABD IN PLACE. PAIN CONTROLLED WITH DEMEROL. CHLORASEPTIC SPRAY ADMINSTERED AT APPROX 2019 WITH GOOD RESULTS. PLACED WARM BLANKET ON PT. BED IN LOWEST POSITION, CALL LIGHT WITHIN REACH, ABLE TO MAKE NEEDS KNOWN. WTCM.
[2016-11-16 23:37] VITALS: BP 147/56
[2016-11-17 03:34] VITALS: BP 153/59
--- NOTE | 2016-11-17 06:23 | NUR ---
PT. RESTED THROUGHOUT THE NIGHT. C/O SOME THROAT PAIN BUT DECLINED THE NEED FOR PAIN MEDICATION. NG TO LIWS PER ORDER, GREEN DRAINAGE COMING FROM NG TUBE. IT IS AT 63 CM AT NARES. PT. HAS TPN, LIPIDS AND IV FLUIDS RUNNING AT THIS TIME. ABD BINDER ON AT THIS TIME. RADHA DRAIN DRAINING SEROSANGUINOUS FLUID. USING IS TO ABOUT 1000. DENIES NAUSEA. CALL LIGHT WITHIN REACH. WCTM.
[2016-11-17 06:46] VITALS: BP 158/59
--- NOTE | 2016-11-17 07:41 | NUR ---
PT. DELGADO LEAKED FROM [place] THIS MORNING ON [employer] AND [employer]. WHILE CHECKING PT DELGADO TO ASSESS, THE DELGADO FELL OUT. CALLED DR. CHAVEZ REGARDING THIS TO SEE IF DR. CHAVEZ WANTED THE PT. TO CONTINUE TO HAVE A DELGADO. PER DR. CHAVEZ, OK TO LEAVE DELGADO OUT.
--- NOTE | 2016-11-17 09:06 | Progress Note ---
Subjective General Patient is doing better. Had a BM this am. Has colbert out and peeing. NO cp, n/v. Physical Exam Vital Signs / I&Os Vital Signs Date Time Temp Pulse Resp B/P Pulse O2 O2 Flow FiO2 Ox Delivery Rate 11/17 0646 98.4 93 20 158/59 93 Room Air 11/17 0334 98.4 90 20 153/59 90 Room Air 11/17 0023 2.0 11/16 2337 98.8 86 20 147/56 90 Room Air 11/16 1815 100 18 161/82 92 11/16 1550 Room Air 11/16 1420 97.7 98 20 146/84 91 Room Air 11/16 1100 Room Air 11/16 1025 97.9 95 21 154/72 92 11/16 1021 2.0 I&O 11/17 0000 11/16 1600 11/16 0800 Intake Total 0 1382 1621 Output Total 855 1255 585 Balance -193 904 5363 General Appearance Alert, Cooperative Lungs Clear to auscultation, Normal air movement Cardiovascular Regular rate and rhythm, No murmurs, gallops, rubs Abdomen Soft Extremities +1 edema bilaterally LAB Results Laboratory Tests 11/17 11/17 0510 0510 Chemistry Plasma Sodium (136 - 145 mmol/L) 135 Plasma Potassium (3.5 - 5.1 mmol/L) 3.3 Plasma Chloride (98 - 107 mmol/L) 99 CO2 (Enzymatic) (21 - 32 mmol/L) 28 BUN (7 - 18 mg/dL) 14 Creatinine (0.6 - 1.3 mg/dL) 0.5 Est GFR ( Amer) (mL/min) >60 Est GFR (Non-Af Amer) (mL/min) >60 Glucose (70 - 110 mg/dL) 121 Plasma Calcium (8.5 - 10.1 mg/dL) 7.7 Plasma Magnesium (1.8 - 2.4 mg/dL) 1.7 Total Bilirubin (0.0 - 1.0 mg/dL) 0.3 AST (15 - 37 U/L) 17 ALT (12 - 78 U/L) 14 Alkaline Phosphatase (46 - 116 U/L) 77 Total Protein (6.4 - 8.2 g/dL) 5.0 Albumin (3.3 - 5.0 g/dL) 2.1 Prealbumin Pending Hematology WBC (4.5 - 11.5 K/uL) 9.7 RBC (4.00 - 5.20 M/uL) 3.41 Hgb (12.0 - 16.0 gm/dL) 10.8 Hct (36.0 - 46.0 %) 31.8 MCV (80 - 100 fL) 93 MCH (26 - 34 pg) 32 RDW (11.6 - 14.8 %) 12.0 Neut % (Auto) (50 - 75 %) 80.8 Lymph % (Auto) (25 - 40 %) 8.8 [place] % (Auto) (3 - 14 %) 7.6 Eos % (Auto) (0 - 4 %) 2.0 Baso % (Auto) (0 - 2 %) 0.8 Plt Count, EDTA (150 - 400 K/uL) 290 PUBS MCHC (31 - 37 g/dL) 34 Assessment and Plan Problem List 1. SBO (small bowel obstruction) Plan Patient is doing well this am BM. 2. Dehydration Plan Patient is doing well at this time on TPN. Will be advancing to diet and ngt per surgery Continue to monitor labs.
[2016-11-17 10:08] VITALS: BP 146/84
--- NOTE | 2016-11-17 10:12 | NUR ---
NUTRITION FOLLOW UP NOTE PPN: Pt started PPN on 11/15. Rev'd orders: D10%/AA4.25% at 85 mls per hour and daily lipids 250 mls 20%. This provides ~1541 kcals and 87 g per 24 hour cycle which appears to meet estimated needs. Noted last weight up 7 kg? 66-73 kg? Rec re-weigh. Rev'd labs, Na+ 135, K+ 3.3; continue to monitor. Prealbumin pending. Will continue to monitor and communicate with multidiciplinary team .
[2016-11-17 15:09] VITALS: BP 152/86
--- NOTE | 2016-11-17 16:38 | DIAGNOSTIC IMAGING REPORT ---
PROCEDURE: XR SBFT WITH GASTROGRAFIN INDICATION: Follow-up obstruction. TECHNIQUE: Single contrast study. Fluoroscopy time 5.8 minute 3186.77 mGy. 180 ml of Gastrografin contrast material infused through the patient's existing nasogastric tube, and three images acquired over a four hour time interval. COMPARISON: Comparison is made abdominal radiograph on 11/15/2016 and prior small bowel series (11/13/2016). FINDINGS: Small bowel series is normal and there is no evidence of obstruction or bowel distention. Contrast reaches the distal rectum and 4 hours. NG tube in mid stomach. Surgical clips and drains overlying the abdomen. IMPRESSION: 1. Negative gastrographin small bowel series with resolution of small bowel obstruction. 2. Findings discussed with Dr. Benavidez.
--- NOTE | 2016-11-17 17:17 | NUR ---
PASSING SMALL LIQUID STOOLS, UNDERWENT SMALL BOWEL FOLLOW THROUGH WITH GASTOGRAFIN AND TOLERATED IT WELL. NGT PULLED PER DR. CHAVEZ. TELE SHOWS A-FIB. A/OX3, CALM AND COOPERATIVE.
[2016-11-17 18:15] VITALS: BP 169/73
[2016-11-17 22:48] VITALS: BP 155/66
[2016-11-18 02:53] VITALS: BP 158/56
[2016-11-18 06:45] VITALS: BP 137/57
--- NOTE | 2016-11-18 06:45 | Progress Note ---
Subjective General 86-year-old female who is status post diagnostic laparoscopy with reduction of internal hernia postop day #6 and closure of iatrogenic perforation small bowel. Diagnostic laparoscopy postop day #3. He yesterday underwent Gastrografin small bowel follow-through no evidence of obstruction. Patient has had several bowel movements. NG tube was discontinued last night patient is comfortable No chest pain, no shortness of breath. Ambulatory. Hungry Physical Exam Vital Signs / I&Os Input 2522/output 1300. Other Blood pressure 158/56 pulse 83 respirations 20 temperature 97.7 Lungs clear O2 sat 96% Abdomen positive bowel sounds minimal distention minimal tympany Gary-Simmons drain output 157 cc's of serous fluid LAB Results Laboratory Tests 11/18 02/ 0520 0520 Chemistry Plasma Sodium (136 - 145 mmol/L) 138 Plasma Potassium (3.5 - 5.1 mmol/L) 3.0 Plasma Chloride (98 - 107 mmol/L) 103 CO2 (Enzymatic) (21 - 32 mmol/L) 31 BUN (7 - 18 mg/dL) 16 Creatinine (0.6 - 1.3 mg/dL) 0.5 Est GFR ( Amer) (mL/min) >60 Est GFR (Non-Af Amer) (mL/min) >60 Glucose (70 - 110 mg/dL) 122 Plasma Calcium (8.5 - 10.1 mg/dL) 7.5 Phosphorus (2.5 - 4.9 mg/dL) 3.9 Plasma Magnesium (1.8 - 2.4 mg/dL) 1.8 Total Bilirubin (0.0 - 1.0 mg/dL) 0.3 AST (15 - 37 U/L) 14 ALT (12 - 78 U/L) 13 Alkaline Phosphatase (46 - 116 U/L) 69 Total Protein (6.4 - 8.2 g/dL) 4.9 Albumin (3.3 - 5.0 g/dL) 1.8 Hematology WBC (4.5 - 11.5 K/uL) 9.1 RBC (4.00 - 5.20 M/uL) 3.15 Hgb (12.0 - 16.0 gm/dL) 9.8 Hct (36.0 - 46.0 %) 29.3 MCV (80 - 100 fL) 93 MCH (26 - 34 pg) 31 RDW (11.6 - 14.8 %) 12.0 Neut % (Auto) (50 - 75 %) 78.9 Lymph % (Auto) (25 - 40 %) 9.3 [place] % (Auto) (3 - 14 %) 8.8 Eos % (Auto) (0 - 4 %) 2.9 Baso % (Auto) (0 - 2 %) 0.1 Plt Count, EDTA (150 - 400 K/uL) 278 PUBS MCHC (31 - 37 g/dL) 34 Assessment and Plan Problem List 1. SBO (small bowel obstruction) Plan DC NG tube. Start clear liquid diet carbonated drinks slowly advance as tolerated. Taper off TPN once patient is tolerating clear liquid diet. DC Gary-Simmons drain next day or 2.
--- NOTE | 2016-11-18 07:31 | Progress Note ---
Subjective General pT SEEN IN COVERAGE FOR dR. Beckman. 86 yo female POD 6 post diagnostic lap for internal hernia and POD 3 closure of small bowel perforation. Feeling improved. Please that Dr. Benavidez is advancing diet to clear liquids. Notes little pain and denies nausea. Physical Exam Vital Signs / I&Os Vital Signs Date Time Temp Pulse Resp B/P Pulse O2 O2 Flow FiO2 Ox Delivery Rate 11/18 0253 97.7 83 20 158/56 94 Nasal 1.0 Cannula 11/17 2248 98.2 87 20 155/66 93 Room Air 11/17 2000 Room Air 11/17 1815 98.2 67 20 169/73 95 11/17 1509 98.8 89 20 152/86 95 11/17 1008 97.7 93 17 146/84 92 Room Air 2.0 11/17 0905 Room Air I&O 11/17 0800 11/17 1600 11/18 0000 Intake Total 2337 0 1451 Output Total 1953 380 380 Balance 384 -380 1071 General Appearance Alert, Oriented X3, Cooperative, No acute distress Lungs Clear to auscultation Cardiovascular Regular rate and rhythm Abdomen Normal bowel sounds, Minimally tender with RADHA drain in place and serous fluid. Extremities 1+ edema. Skin No Rashes LAB Results Laboratory Tests 11/18 11/18 0520 0520 Chemistry Plasma Sodium (136 - 145 mmol/L) 138 Plasma Potassium (3.5 - 5.1 mmol/L) 3.0 Plasma Chloride (98 - 107 mmol/L) 103 CO2 (Enzymatic) (21 - 32 mmol/L) 31 BUN (7 - 18 mg/dL) 16 Creatinine (0.6 - 1.3 mg/dL) 0.5 Est GFR ( Amer) (mL/min) >60 Est GFR (Non-Af Amer) (mL/min) >60 Glucose (70 - 110 mg/dL) 122 Plasma Calcium (8.5 - 10.1 mg/dL) 7.5 Phosphorus (2.5 - 4.9 mg/dL) 3.9 Plasma Magnesium (1.8 - 2.4 mg/dL) 1.8 Total Bilirubin (0.0 - 1.0 mg/dL) 0.3 AST (15 - 37 U/L) 14 ALT (12 - 78 U/L) 13 Alkaline Phosphatase (46 - 116 U/L) 69 Total Protein (6.4 - 8.2 g/dL) 4.9 Albumin (3.3 - 5.0 g/dL) 1.8 Hematology WBC (4.5 - 11.5 K/uL) 9.1 RBC (4.00 - 5.20 M/uL) 3.15 Hgb (12.0 - 16.0 gm/dL) 9.8 Hct (36.0 - 46.0 %) 29.3 MCV (80 - 100 fL) 93 MCH (26 - 34 pg) 31 RDW (11.6 - 14.8 %) 12.0 Neut % (Auto) (50 - 75 %) 78.9 Lymph % (Auto) (25 - 40 %) 9.3 [place] % (Auto) (3 - 14 %) 8.8 Eos % (Auto) (0 - 4 %) 2.9 Baso % (Auto) (0 - 2 %) 0.1 Plt Count, EDTA (150 - 400 K/uL) 278 PUBS MCHC (31 - 37 g/dL) 34 Assessment and Plan Problem List 1. SBO (small bowel obstruction) Plan Improving. Advancing diet, NG removed and surgery planning to D/c RADHA soon. 2. Hyponatremia Plan Will leave to correction via TPN.
--- NOTE | 2016-11-18 08:16 | NUR ---
In to see patient and recheck right heel from bumping the iv pole x2 times now, there is still a small bruise as before, and now a small superficial roughened area in center of heel. Foam dressing placed over area for treatment and protection, pt states feels "much better" pt up ambulating in hallway, will continue to monitor. Skin to sacrum is intact and non erythema.
--- NOTE | 2016-11-18 08:53 | NUR ---
PT UP TO CHAIR THIS MORNING AND DENYING ANY COMPLAINTS OF PAIN. DIET HAS BEEN ADVANCED TO CLEAR LIQUIDS THIS MORNING AND SHE IS TOLERATING THEM WELL. SHE REPORTS NO N/V.
[2016-11-18 10:00] VITALS: BP 139/52
--- NOTE | 2016-11-18 14:16 | NUR ---
Pt complained of 4/10 abdominal pain and tenderness in her abdomen. IV pain medication was successful at relieving this pain. Pt is tolerating clear liquids with no N/V. She also reports having multiple loose stools. Surgical site shows no changes and and RADHA drain is draining effectively with a small amount of pinkish drainage. Pt currently sitting up in her chair, resting with call light in place.
--- NOTE | 2016-11-18 14:24 | NUR ---
NUTRITION FOLLOW UP NOTE: Pt continues on TPN, no changes in formula/rate noted. Pt preablumin 8 (low) current amino acids providing 87 g per day which provides ~1.2 g per kg. Pt started clear liquids and took ~50% at breakfast per documentation. Anticipate diet advancement soon. Rec offer BOOST Breeze between meal bid to help optimize kcal and protein intake. RD to continue to follow closely.
[2016-11-18 14:29] VITALS: BP 129/52
[2016-11-18 18:34] VITALS: BP 147/53
[2016-11-18 22:59] VITALS: BP 146/54
[2016-11-19 02:32] VITALS: BP 156/65
[2016-11-19 06:35] VITALS: BP 146/59
--- NOTE | 2016-11-19 07:06 | Progress Note ---
Subjective General 86-year-old female who is status post diagnostic laparoscopy with reduction of internal hernia postop day #7. Patient status post diagnostic laparoscopy postop day #4. Patient is presently on a diet which she is tolerating. No nausea no vomiting with minimal abdominal discomfort. Ambulatory. No shortness of breath or chest pain. Physical Exam Vital Signs / I&Os Patient awake alert and conversant Blood pressure 156/65 pulse 76 respirations 19 temperature is 97.9 ABDOMEN: Nondistended. Gary-Simmons drain 94 cc. Positive bowel sounds Gary-Simmons drain discontinued. Patient tolerated procedure well. Dressing applied. Other Total input is 6200. Total output 1825. LAB Results Laboratory Tests 11/19 0520 Chemistry Plasma Sodium (136 - 145 mmol/L) 136 Plasma Potassium (3.5 - 5.1 mmol/L) 3.4 Plasma Chloride (98 - 107 mmol/L) 100 CO2 (Enzymatic) (21 - 32 mmol/L) 28 BUN (7 - 18 mg/dL) 14 Creatinine (0.6 - 1.3 mg/dL) 0.5 Est GFR ( Amer) (mL/min) >60 Est GFR (Non-Af Amer) (mL/min) >60 Glucose (70 - 110 mg/dL) 117 Plasma Calcium (8.5 - 10.1 mg/dL) 7.6 Plasma Magnesium (1.8 - 2.4 mg/dL) 1.7 Total Bilirubin (0.0 - 1.0 mg/dL) 0.3 AST (15 - 37 U/L) 20 ALT (12 - 78 U/L) 15 Alkaline Phosphatase (46 - 116 U/L) 76 Total Protein (6.4 - 8.2 g/dL) 4.9 Albumin (3.3 - 5.0 g/dL) 2.1 Hematology WBC (4.5 - 11.5 K/uL) 8.4 RBC (4.00 - 5.20 M/uL) 3.29 Hgb (12.0 - 16.0 gm/dL) 10.2 Hct (36.0 - 46.0 %) 30.7 MCV (80 - 100 fL) 94 MCH (26 - 34 pg) 31 RDW (11.6 - 14.8 %) 12.3 Neut % (Auto) (50 - 75 %) 76.3 Lymph % (Auto) (25 - 40 %) 10.9 [place] % (Auto) (3 - 14 %) 9.5 Eos % (Auto) (0 - 4 %) 3.2 Baso % (Auto) (0 - 2 %) 0.1 Plt Count, EDTA (150 - 400 K/uL) 310 PUBS MCHC (31 - 37 g/dL) 33 Assessment and Plan Problem List 1. SBO (small bowel obstruction) Plan Diet as tolerated. Discharge home as per Dr. Marie. Wound care instructions. Follow up with [facility] in one week Hgb (12.0 - 16.0 gm/dL) 10.2 Hct (36.0 - 46.0 %) 30.7 MCV (80 - 100 fL) 94 MCH (26 - 34 pg) 31 RDW (11.6 - 14.8 %) 12.3 Neut % (Auto) (50 - 75 %) 76.3 Lymph % (Auto) (25 - 40 %) 10.9 [place] % (Auto) (3 - 14 %) 9.5 Eos % (Auto) (0 - 4 %) 3.2 Baso % (Auto) (0 - 2 %) 0.1 Plt Count, EDTA (150 - 400 K/uL) 310 PUBS MCHC (31 - 37 g/dL) 33 Assessment and Plan Problem List 1. SBO (small bowel obstruction)
--- NOTE | 2016-11-19 07:32 | Progress Note ---
Subjective General Patient states that she is doing well. Has been taking PO. No issues as far as she is concerned. Has been with no cp, sob. No fevers. Physical Exam Vital Signs / I&Os Vital Signs Date Time Temp Pulse Resp B/P Pulse O2 O2 Flow FiO2 Ox Delivery Rate 11/19 0635 98.4 76 20 146/59 94 Room Air 0.0 11/19 0232 97.9 76 19 156/65 94 Room Air 11/18 2259 98.1 81 19 146/54 Room Air 11/18 2029 Room Air 0.0 11/18 1834 98.1 68 19 147/53 95 Room Air 11/18 1429 98.1 85 20 129/52 96 Room Air 11/18 1000 98.1 76 20 139/52 93 Nasal 0.0 Cannula I&O 11/19 0000 11/18 1600 11/18 0800 Intake Total 2067 840 1996 Output Total 1020 1836 1474 Balance 1047 -996 522 General Appearance Alert, Cooperative Lungs Clear to auscultation, Normal air movement Cardiovascular Regular rate and rhythm Abdomen Soft Extremities No edema LAB Results Laboratory Tests 11/19 0520 Chemistry Plasma Sodium (136 - 145 mmol/L) 136 Plasma Potassium (3.5 - 5.1 mmol/L) 3.4 Plasma Chloride (98 - 107 mmol/L) 100 CO2 (Enzymatic) (21 - 32 mmol/L) 28 BUN (7 - 18 mg/dL) 14 Creatinine (0.6 - 1.3 mg/dL) 0.5 Est GFR ( Amer) (mL/min) >60 Est GFR (Non-Af Amer) (mL/min) >60 Glucose (70 - 110 mg/dL) 117 Plasma Calcium (8.5 - 10.1 mg/dL) 7.6 Plasma Magnesium (1.8 - 2.4 mg/dL) 1.7 Total Bilirubin (0.0 - 1.0 mg/dL) 0.3 AST (15 - 37 U/L) 20 ALT (12 - 78 U/L) 15 Alkaline Phosphatase (46 - 116 U/L) 76 Total Protein (6.4 - 8.2 g/dL) 4.9 Albumin (3.3 - 5.0 g/dL) 2.1 Hematology WBC (4.5 - 11.5 K/uL) 8.4 RBC (4.00 - 5.20 M/uL) 3.29 Hgb (12.0 - 16.0 gm/dL) 10.2 Hct (36.0 - 46.0 %) 30.7 MCV (80 - 100 fL) 94 MCH (26 - 34 pg) 31 RDW (11.6 - 14.8 %) 12.3 Neut % (Auto) (50 - 75 %) 76.3 Lymph % (Auto) (25 - 40 %) 10.9 [place] % (Auto) (3 - 14 %) 9.5 Eos % (Auto) (0 - 4 %) 3.2 Baso % (Auto) (0 - 2 %) 0.1 Plt Count, EDTA (150 - 400 K/uL) 310 PUBS MCHC (31 - 37 g/dL) 33 Assessment and Plan Problem List 1. SBO (small bowel obstruction) Plan REsolved 2. Dehydration Plan resolved 3. Hyponatremia Plan resolved
--- NOTE | 2016-11-19 07:36 | Provider's Discharge Care Plan ---
Problem, Goal, Plan Problem List 1. SBO (small bowel obstruction) Instructions: Follow up as directed, Take meds as directed
--- NOTE | 2016-11-19 07:36 | Provider's Discharge Care Plan ---
Problem, Goal, Plan Problem List 1. SBO (small bowel obstruction) Instructions: Follow up as directed, Take meds as directed
--- NOTE | 2016-11-19 08:20 | DISCHARGE SUMMARY ---
ADMIT DATE: 11/07/2016 DISCHARGE DATE: 11/19/2016 ADMITTING DIAGNOSIS: 1. Small bowel obstruction DISCHARGE DIAGNOSIS: 1. SBO 2.Leukocytosis 3.exploratory laparoscopy x 2 (refeer to operative notes for findings) HOSPITAL COURSE: The patient was admitted on 11/07/2016. She was initially watched with nasogastric tube, she had no improvement, had a Gastrografin and small bowel follow through, which was not successful, went to the operating room with Dr. Benavidez on 11/12/2016. Please refer to operative note for details, but she had a hernia and obstruction. She, postop, had some fevers, elevated white count, went back into the operating room on 11/15/2016 without any significant findings. She had improvement in her white count. She was never treated with antibiotics and she improved over the next few days. She had started TPN during the hospitalization when she had been without p.o. for about 7 days. At time of discharge, she was feeling much better. She was without fevers, temperature 98.4, heart rate of 76, blood pressure of 146/59, respirations 20, saturating 94% on room air. Her labs, sodium of 136, potassium 3.4, chloride 100, creatinine 0.5, glucose 117, normal chem-12, except for low albumin at 2.1 and calcium of 7.6, that corrects out to normal, white count was 8.4, hematocrit 30.7, platelets of 310. DISCHARGE INSTRUCTIONS/MEDICATIONS: Her discharge was to home. Discharge medications included Metoprolol extended release 50 mg p.o. daily, Evista 60 mg daily, Losartan 25 mg p.o. daily. Allopurinol 100 mg p.o. daily. Omeprazole 20 mg p.o. b.i.d. Trazodone 100 mg p.o. at bedtime. Meloxicam 15 mg p.o. daily p.r.n. pain. Calcium carbonate 500 mg p.o. t.i.d. Acetaminophen/hydrocodone 1 p.o. at bedtime p.r.n. pain. The patient to follow up with me in 1 week. Follow up with Dr. Benavidez in 1-2 weeks.
[2016-11-19 11:50] VITALS: BP 148/73
--- NOTE | 2016-11-19 17:17 | NUR ---
WENT OVER DC INSTRUCTIONS AND EDUCATION ON CURRENT DIAGNOSIS. SON WENT TO DR VILLASENOR'S OFFICE AND PICKED UP PAIN RX. ESCORTED OUT TO PRIVATE CAR HOME.
== END 2016-11-19 17:00 | disposition home health service (06) | DRG 330 ==
LOC: ED SRH 07:52 → TRANS SRH 11:12 → ACUTE2 SRH 13:12
PROVIDERS: Specialist; ADMIT Emergency Medicine
PROC: 0D9670Z Drainage of Stomach with Drainage Device, Via Natural or Artificial Opening (ICD-10-PCS; 2016-11-07)
PROC: 0DNB4ZZ Release Ileum, Percutaneous Endoscopic Approach (ICD-10-PCS; principal; 2016-11-12 12:15)
PROC: 0DQ80ZZ Repair Small Intestine, Open Approach (ICD-10-PCS; principal; 2016-11-12 12:15)
PROC: 0WJP4ZZ Inspection of Gastrointestinal Tract, Percutaneous Endoscopic Approach (ICD-10-PCS; 2016-11-14)
PROC: 02HV33Z Insertion of Infusion Device into Superior Vena Cava, Percutaneous Approach (ICD-10-PCS; 2016-11-14)
PROC: 3E0436Z Introduction of Nutritional Substance into Central Vein, Percutaneous Approach (ICD-10-PCS; 2016-11-16)
DX: K46.0 Unspecified abdominal hernia with obstruction, without gangrene (principal); K91.71 Accidental puncture and laceration of a digestive system organ or structure during a digestive system procedure; K91.3 Postprocedural intestinal obstruction; E87.1 Hypo-osmolality and hyponatremia; E86.0 Dehydration; R39.2 Extrarenal uremia; K44.9 Diaphragmatic hernia without obstruction or gangrene; I10 Essential (primary) hypertension; E78.5 Hyperlipidemia, unspecified; Z85.038 Personal history of other malignant neoplasm of large intestine
CPT/HCPCS: 29230; 50002; 60001; 70002; 80102; 80212; 80248; 80298; 80813; 81240; 81523; 81700; 82669; 82794; 82897; 83463; 83475; 83587; 83738; 83919; 83982; 84038; 84044; 84341; 84532; 85244; 90004; 90047; 90074; 90098; 90100; 90101; 90616; 91286; 92235; 92530; 92610; 92720; 92740; 95059